=== PATIENT | male | born 1970 | race Two or more races ===

== ENCOUNTER 2016-05-15 11:41 | Outpatient (RCR) | payer MEDICAID ==
[~2016-05-15 11:41] MED LIST: /MOM400 PO; BACL10TA PO; CALC25TA PO; DULC5TAB PO; IBUP40TA PO; MIRA3350 PO; NORCOTAB PO; PRIL40CA PO; ZOFR4TAB3 PO
== END 2016-05-28 ==
LOC: M ST 11:41
PROVIDERS: ATTEND Family Medicine
DX: Z51.89 Encounter for other specified aftercare (principal); R13.11 Dysphagia, oral phase; G80.9 Cerebral palsy, unspecified
CPT/HCPCS: 92610; G8996; G8997; G8998

== ENCOUNTER 2016-06-03 12:53 | Outpatient (RCR) | payer MEDICAID ==
[2016-06-09] MEDS ORDERED: DULC5TAB PO (07:30)
[2016-06-09] MEDS ORDERED: ZOFR4TAB3 PO (07:30)
[2016-06-09] MEDS ORDERED: OMEP40CA2 PO (07:30)
== END 2016-06-28 ==
LOC: M ST 12:53
PROVIDERS: ATTEND Family Medicine
DX: Z51.89 Encounter for other specified aftercare (principal); R13.11 Dysphagia, oral phase; R13.10 Dysphagia, unspecified; G80.9 Cerebral palsy, unspecified

== ENCOUNTER 2016-06-09 07:10 | Emergency (ER) | payer MEDICAID ==
[2016-06-09] MEDS ORDERED: OMEP40CA2 PO (07:30)
[2016-06-09] MEDS ORDERED: ZOFR4TAB3 PO (07:30)
[2016-06-09] MEDS ORDERED: DULC5TAB PO (07:30)
[2016-06-09 09:02] LABS: BASO % 0.2 % (0.0-1.0); EOS # 0.1 K/mm3 (0.0-0.50); LARGE UNSTAINED CELL # 0.1 K/mm3 (0.0-0.4); LARGE UNSTAINED CELL % 1.1 % (0.0-4.0); LYMPH # 0.8 K/mm3 (1.5-4.5); LYMPH % 11.8 % (24.0-44.0); MEAN CORPUSCULAR HEMOGLOBIN 24.2 pg (27.0-33.0); MEAN CORPUSCULAR HGB CONC 31.4 g/dl (32.0-36.5); MEAN CORPUSCULAR VOLUME 77.1 fl (80.0-96.0); MONO # 0.3 K/mm3 (0.0-0.8); MONO % 5.8 % (0.0-5.0); NEUTROPHILS # 4.7 K/mm3 (1.8-7.7); NEUTROPHILS % 80.1 % (36.0-66.0); PLATELET COUNT, AUTOMATED 231 k/mm3 (150-450); RED CELL DISTRIBUTION WIDTH 14.3 % (11.5-14.5); WHITE BLOOD COUNT 5.8 K/mm3 (4.0-10.0)
[2016-06-09 09:26] LABS: ALBUMIN 3.7 GM/DL (3.2-5.2); ALBUMIN/GLOBULIN RATIO 0.93 (1.00-1.93); ALKALINE PHOSPHATASE 151 U/L (45-117); ALT/SGPT 13 U/L (12-78); AMYLASE 70 U/L (25-115); ANION GAP 7 MEQ/L (8-16); AST/SGOT 11 U/L (15-37); BILIRUBIN,DIRECT 0.1 MG/DL (0.0-0.2); BILIRUBIN,TOTAL 0.3 MG/DL (0.2-1.0); BLOOD UREA NITROGEN 8 MG/DL (7-18); CALCIUM LEVEL 8.9 MG/DL (8.5-10.1); CARBON DIOXIDE LEVEL 32 MEQ/L (21-32); CHLORIDE LEVEL 103 MEQ/L (98-107); GLOMERULAR FILTRATION RATE > 60.0 (>60); GLUCOSE, FASTING 93 MG/DL (70-105); POTASSIUM SERUM 3.9 MEQ/L (3.5-5.1); SODIUM LEVEL 142 MEQ/L (136-145); TOTAL PROTEIN 7.7 GM/DL (6.4-8.2)
[2016-06-09 09:44] LABS: INR 0.98
[2016-06-09] MEDS ORDERED: MORPHINE 2 MG/ML 1ML SYRINGE IV ONE (10:45)
[2016-06-09] MEDS ORDERED: ONDANSETRON 4MG/2ML VIAL (J2405) IV ONE (10:45)
[2016-06-09] MEDS ORDERED: NS 1,000 ML IV SCH (11:00)
[2016-06-09 12:05] VITALS: BP 99/65
--- NOTE | 2016-06-09 12:46 | REP ---
REASON: Pain after fall. COMPARISON: None. FINDINGS: No acute fracture or destructive osseous lesion. Signed by Juan Ramon Jeong DO 06/09/2016 01:53 P
--- NOTE | 2016-06-09 12:47 | REP ---
REASON: Pain after fall. COMPARISON: 02/02/2015 Bilateral spinal fixators are noted, status quo. There does not appear to be a significant change in the appearance of the spine, bilateral fixators, or transpedicular fixating screws. IMPRESSION: No plain radiographic evidence of definite change. Signed by Juan Ramon Jeong DO 06/09/2016 01:53 P
--- NOTE | 2016-06-09 12:47 | REP ---
REASON: Pain after fall. COMPARISON: None. FINDINGS: No acute fracture or destructive osseous lesion. Signed by Juan Ramon Jeong DO 06/09/2016 01:53 P
--- NOTE | 2016-06-09 12:49 | REP ---
REASON: Pain after fall. COMPARISON: 02/02/2015 Once again, bilateral paraspinal fixators are noted with multiple transpedicular screws and cancellous screws within the pelvis and sacrum. There does not appear to be a significant change in the appearance of the spine or spinal fixating devices. IMPRESSION: No evidence of significant change. Signed by Juan Ramon Jeong DO 06/09/2016 01:53 P
--- NOTE | 2016-06-09 12:54 | REP ---
Pain after trauma. COMPARISON: Preoperative AP pelvis 08/06/2009 There is no significant change in the appearance of the pelvis other than previous spinal fixation as described on prior studies obtained today. There is no evidence of an acute pelvic or hip fracture or dislocation. AP AND CROSS-TABLE LATERAL VIEWS OF THE LEFT HIP: The only prior is an AP pelvis of 12/03/2009. Two views of the left hip show no evidence of an acute fracture or dislocation. Signed by Juan Ramon Jeong DO 06/09/2016 01:53 P
--- NOTE | 2016-06-09 14:16 | REP ---
REASON: Trauma. COMPARISON: Frontal view obtained as part of a rib series 02/02/2015. The technique utilized in obtaining the radiograph has magnified the cardiac silhouette and accentuated the interstitial markings. AP supine view of the chest shows the cardiomediastinal silhouette, lung hawthorne, and osseous structures to be unchanged. There is no evidence of acute disease. Spinal fixators are noted status quo. Signed by Juan Ramon Jeong DO 06/09/2016 03:17 P
== END 2016-06-09 12:07 | disposition short-term general hospital (02) ==
LOC: M ED 08:08
DX: M25.552 Pain in left hip (principal); R20.9 Unspecified disturbances of skin sensation; M54.5 Low back pain; G80.0 Spastic quadriplegic cerebral palsy; Z98.1 Arthrodesis status; E78.5 Hyperlipidemia, unspecified; Z79.899 Other long term (current) drug therapy
CPT/HCPCS: 36415; 71010; 72070; 72100; 73502; 73552; 73590; 80048; 80076; 82150; 83605; 83690; 85025; 85610; 85730; 86850; 86900; 86901; 93041; 94760; 96374; 96375; 99285; J2405

== ENCOUNTER → 2016-09-02 | Outpatient (REF) | payer MEDICAID ==
[~2016-09-02] MED LIST changes: +OMEP40CA2 PO
[2016-09-02 14:16] LABS: ALBUMIN/GLOBULIN RATIO 1.11 (1.00-1.93); ALKALINE PHOSPHATASE 162 U/L (45-117); ALT/SGPT 16 U/L (12-78); AST/SGOT 11 U/L (15-37); BILIRUBIN,DIRECT < 0.1 MG/DL (0.0-0.2); BILIRUBIN,TOTAL 0.4 MG/DL (0.2-1.0); TOTAL PROTEIN 7.6 GM/DL (6.4-8.2)
== END ==
LOC: M SFHCPLAZ 11:22
PROVIDERS: ATTEND Family Medicine
DX: R74.8 Abnormal levels of other serum enzymes (principal)

== ENCOUNTER → 2016-11-20 | Outpatient (CLI) | payer MEDICARE, MEDICAID ==
[~2016-11-20] MED LIST changes: +ASPI1TAB PO; +ASPI81CH PO; +BACL10TA2 PO; +DAPT500I IV; +MULT1CHW39 PO; +SKEL800T97 PO; +THICPOW5 PO; +TUMS500C PO; +VITA500T PO; +VITMTA PO; +ZOSY1SOL5 IV
== END ==
LOC: M PT 12:37
PROVIDERS: ATTEND Nurse Practitioner Family
DX: M47.812 Spondylosis without myelopathy or radiculopathy, cervical region (principal); M41.50 Other secondary scoliosis, site unspecified; G80.8 Other cerebral palsy
CPT/HCPCS: 97162; G8978; G8979; G8980

== ENCOUNTER 2017-01-01 20:56 | Emergency (ER) | payer MEDICARE, MEDICAID ==
[~2017-01-01] VITALS: Ht 177.8 cm; Wt 61.4 kg
[~2017-01-01 20:56] MED LIST changes: -ASPI1TAB PO; -ASPI81CH PO; -BACL10TA2 PO; -DAPT500I IV; -MULT1CHW39 PO; -SKEL800T97 PO; -THICPOW5 PO; -TUMS500C PO; -VITA500T PO; -VITMTA PO; -ZOSY1SOL5 IV
[2017-01-01] MEDS ORDERED: TUMS500C PO (21:21)
[2017-01-01] MEDS ORDERED: ASPI1TAB PO (21:21)
[2017-01-01] MEDS ORDERED: DAPT500I IV (21:21)
[2017-01-01] MEDS ORDERED: SKEL800T97 PO (21:21)
[2017-01-01] MEDS ORDERED: MULT1CHW39 PO (21:21)
[2017-01-01] MEDS ORDERED: BACL10TA2 PO (21:21)
[2017-01-01] MEDS ORDERED: ZOSY1SOL5 IV (21:21)
[2017-01-01] MEDS ORDERED: ACETAMINOPHEN 325 MG TAB PO ONE (21:45)
[2017-01-01] MEDS ORDERED: NS 1,000 ML IV ONE (21:45)
[2017-01-01 22:24] LABS: BASO % 0.3 % (0.0-1.0); EOS # 0.5 10^3/uL (0.0-0.50); EOS % 4.2 % (0.0-3.0); IMMATURE GRANULOCYTE % 0.3 % (0-0); LYMPH # 0.7 10^3/uL (1.5-4.5); LYMPH % 5.4 % (24.0-44.0); MEAN CORPUSCULAR HEMOGLOBIN 22.8 pg (27.0-33.0); MEAN CORPUSCULAR HGB CONC 31.6 g/dl (32.0-36.5); MONO % 9.5 % (0.0-5.0); NEUTROPHILS # 9.8 10^3/uL (1.8-7.7); NEUTROPHILS % 80.3 % (36.0-66.0); PLATELET COUNT, AUTOMATED 477 10^3/uL (150-450); RED CELL DISTRIBUTION WIDTH 15.3 % (11.5-14.5); WHITE BLOOD COUNT 12.3 10^3/uL (4.0-10.0)
[2017-01-01 22:25] LABS: ADD MORPHOLOGY? YES; MONO # 1.2 10^3/uL (0.0-0.8)
[2017-01-01 22:44] LABS: ALBUMIN 2.6 GM/DL (3.2-5.2); ALBUMIN/GLOBULIN RATIO 0.57 (1.00-1.93); BILIRUBIN,DIRECT 0.1 MG/DL (0.0-0.2); BILIRUBIN,TOTAL 0.5 MG/DL (0.2-1.0); TOTAL PROTEIN 7.2 GM/DL (6.4-8.2)
[2017-01-01 22:48] LABS: HYPOCHROMASIA 2+; MICROCYTOSIS 2+; POIKILOCYTOSIS 2+
[2017-01-01 22:49] LABS: OVALOCYTES 2+
[2017-01-01 23:45] LABS: CALCIUM LEVEL 8.5 MG/DL (8.5-10.1); CREATININE FOR GFR 1.38 MG/DL (0.70-1.30); GLOMERULAR FILTRATION RATE 59.1 (>60); POTASSIUM SERUM 3.3 MEQ/L (3.5-5.1)
[2017-01-02] MEDS ORDERED: ISOVUE-370 76% 100ML VIAL (Q9967) As Ordered ONE (01:29)
[2017-01-02] MEDS ORDERED: NS 500 ML IV ONE (01:30)
--- NOTE | 2017-01-02 02:50 | REPUSA ---
CLINICAL HISTORY: Dyspnea, exclude PE. TECHNIQUE: Multiple incremental axial, coronal and oblique images are obtained from the thoracic inle t to the upper abdomen. Intravenous contrast material was administered as per pulmonary embolism prot ocol. COMMENTS: Comparison to prior exam performed on 10/07/2014. Interval appearance of a minimal right pleural effusion. Associated passive atelectatic airspace dise ase in the right lower lobe. Pulmonary consolidation is noted in the upper lobes, lingula, right middle lobe and bilateral lower l obes. There is excellent opacification of pulmonary arterial system without evidence for pulmonary embolism . Aorta is of normal caliber without evidence for dissection or aneurysm. There is no evidence of pleural or parenchymal mass. There are no pleural effusions. There is no evid ence of hilar or mediastinal lymphadenopathy. The heart and great vessels are within normal limits. Images of the upper abdomen demonstrate no evidence of adrenal mass. The bony structures are free of lytic or blastic lesions. Unremarkable spinal metallic hardware. IMPRESSION: No evidence for pulmonary embolism. Bilateral pleural consolidations that are not present on prior exam. Interval appearance of a minimal right effusion. Thank you for your kind referral of this patient.
[2017-01-02] MEDS ORDERED: VITA500T PO (04:19)
[2017-01-02] MEDS ORDERED: THICPOW5 PO (04:19)
[2017-01-02] MEDS ORDERED: ASPI81CH PO (04:19)
[2017-01-02] MEDS ORDERED: VITMTA PO (04:19)
[2017-01-02] MEDS ORDERED: ONDANSETRON 4 MG ORAL DISINTEGRATING TAB (S0181) PO ONE (06:00)
[2017-01-02 09:14] VITALS: BP 122/73
== END 2017-01-02 09:15 | disposition short-term general hospital (02) ==
LOC: M ED 20:56 → EDBD 20:56 → M ED 01-02 09:15
DX: R91.8 Other nonspecific abnormal finding of lung field (principal); R50.9 Fever, unspecified; G80.9 Cerebral palsy, unspecified; M41.9 Scoliosis, unspecified; K21.9 Gastro-esophageal reflux disease without esophagitis; Z79.899 Other long term (current) drug therapy; Z87.81 Personal history of (healed) traumatic fracture
CPT/HCPCS: 71275; 80048; 80076; 81001; 83605; 85025; 87040; 87086; 96360; 96361; 99285; Q9967

== ENCOUNTER → 2017-02-13 | Outpatient (REF) | payer MEDICARE, MEDICAID ==
[~2017-02-13] MED LIST changes: +ASPI1TAB PO; +ASPI81CH PO; +BACL10TA2 PO; +DAPT500I IV; +MULT1CHW39 PO; +SKEL800T97 PO; +THICPOW5 PO; +TUMS500C PO; +VITA500T PO; +VITMTA PO; +ZOSY1SOL5 IV
[2017-02-13 12:57] LABS: BASO % 0.7 % (0.0-1.0); EOS # 0.1 10^3/uL (0.0-0.50); EOS % 1.5 % (0.0-3.0); IMMATURE GRANULOCYTE % 0.3 % (0-0); LYMPH # 1.4 10^3/uL (1.5-4.5); LYMPH % 22.2 % (24.0-44.0); MEAN CORPUSCULAR HEMOGLOBIN 24.5 pg (27.0-33.0); MEAN CORPUSCULAR HGB CONC 30.9 g/dl (32.0-36.5); MEAN CORPUSCULAR VOLUME 79.2 fl (80.0-96.0); MONO # 0.6 10^3/uL (0.0-0.8); MONO % 9.3 % (0.0-5.0); NEUTROPHILS # 4.1 10^3/uL (1.8-7.7); PLATELET COUNT, AUTOMATED 315 10^3/uL (150-450); RED CELL DISTRIBUTION WIDTH 18.6 % (11.5-14.5); WHITE BLOOD COUNT 6.1 10^3/uL (4.0-10.0)
[2017-02-13 13:15] LABS: ALBUMIN 3.7 GM/DL (3.2-5.2); ALBUMIN/GLOBULIN RATIO 0.95 (1.00-1.93); ALKALINE PHOSPHATASE 198 U/L (45-117); ALT/SGPT 31 U/L (12-78); ANION GAP 7 MEQ/L (8-16); AST/SGOT 22 U/L (7-37); BILIRUBIN,TOTAL 0.2 MG/DL (0.2-1.0); BLOOD UREA NITROGEN 9 MG/DL (7-18); CALCIUM LEVEL 9.8 MG/DL (8.5-10.1); CARBON DIOXIDE LEVEL 30 MEQ/L (21-32); CHLORIDE LEVEL 104 MEQ/L (98-107); CREATININE FOR GFR 1.11 MG/DL (0.70-1.30); GLOMERULAR FILTRATION RATE > 60.0 (>60); GLUCOSE, FASTING 94 MG/DL (70-105); POTASSIUM SERUM 4.3 MEQ/L (3.5-5.1); SODIUM LEVEL 141 MEQ/L (136-145); TOTAL PROTEIN 7.6 GM/DL (6.4-8.2)
== END ==
LOC: M SFHCPLAZ 11:38
PROVIDERS: ATTEND Nurse Practitioner Family
DX: A09 Infectious gastroenteritis and colitis, unspecified (principal)
CPT/HCPCS: 36415; 80053; 85025; 87507; G0463

== ENCOUNTER → 2018-06-01 | Outpatient (REF) | payer MEDICARE, MEDICAID ==
[~2018-06-01] MED LIST changes: +ZOFR4TAB14 PO
[2018-06-01 13:42] LABS: BASO # 0.1 10^3/uL (0.0-0.2); BASO % 1.8 % (0.0-1.0); EOS # 0.1 10^3/uL (0.0-0.50); EOS % 1.3 % (0.0-3.0); HEMATOCRIT 35.6 % (42.0-52.0); HEMOGLOBIN 10.9 g/dl (13.5-17.5); LYMPH # 1.2 10^3/uL (1.5-4.5); LYMPH % 30.8 % (24.0-44.0); MEAN CORPUSCULAR HEMOGLOBIN 21.8 pg (27.0-33.0); MEAN CORPUSCULAR HGB CONC 30.6 g/dl (32.0-36.5); MEAN CORPUSCULAR VOLUME 71.2 fl (80.0-96.0); MONO # 0.4 10^3/uL (0.0-0.8); MONO % 10.3 % (0.0-5.0); NEUTROPHILS # 2.2 10^3/uL (1.8-7.7); NEUTROPHILS % 55.5 % (36.0-66.0); PLATELET COUNT, AUTOMATED 289 10^3/uL (150-450)
[2018-06-01 14:05] LABS: ALBUMIN 4.1 GM/DL (3.2-5.2); ALT/SGPT 52 U/L (12-78); BILIRUBIN,TOTAL 0.3 MG/DL (0.2-1.0); BLOOD UREA NITROGEN 5 MG/DL (7-18); C REACTIVE PROTEIN QUANTITATIV < 0.30 MG/DL (0.00-0.30); CALCIUM LEVEL 8.9 MG/DL (8.5-10.1); CARBON DIOXIDE LEVEL 29 MEQ/L (21-32); CHLORIDE LEVEL 107 MEQ/L (98-107); CREATININE FOR GFR 1.03 MG/DL (0.70-1.30); GLOMERULAR FILTRATION RATE > 60.0 (>60); GLUCOSE, FASTING 80 MG/DL (70-100); POTASSIUM SERUM 4.4 MEQ/L (3.5-5.1); SODIUM LEVEL 142 MEQ/L (136-145); TOTAL PROTEIN 7.7 GM/DL (6.4-8.2)
[2018-06-01 15:12] LABS: ERYTHROCYTE SEDIMENTATION RATE 6 mm/hr (0-15)
== END ==
LOC: M SFHCPLAZ 12:14
PROVIDERS: ATTEND Internal Medicine Infectious Disease
DX: M46.20 Osteomyelitis of vertebra, site unspecified (principal)
CPT/HCPCS: 36415; 80053; 85025; 85652; 86140; G0463

== ENCOUNTER → 2018-06-08 | Outpatient (CLI) | payer MEDICARE, MEDICAID ==
--- NOTE | 2018-06-08 11:43 | REP ---
ABDOMINAL ULTRASOUND (LIMITED): 06/08/2018 CLINICAL HISTORY: Followup reported abnormal ultrasound with possible [address] nondiagnostic because of extensive hardware scattered from Liriano rods for scoliosis. FINDINGS: Sonographic evaluation of the right upper quadrant shows the liver homogeneous in its echotexture. There is no hepatic mass, intrahepatic biliary dilatation nor perihepatic ascites. Gallbladder shows no stone, sludge or pericholecystic fluid. Normal gallbladder wall thickness of 2 mm. The pancreas shows no mass, ductal dilatation, echogenic focus to suggest calcification, peripancreatic fluid or adenopathy on these images. No sonographic Borja sign identified. Common duct is 3.4 mm without filling defect or dilatation. The right kidney is 9.3 x 4.6 x 4.2 cm. There is a 2.2 x 1.7 x 1.2 cm upper pole cyst with wall calcifications in that right side. This is not a simple cyst. It has no internal echoes otherwise and has through transmission. There is no free fluid in the abdomen. IMPRESSION: 1. Pancreas is seen throughout and shows no evidence of a mass, fluid collection, ductal dilatation, peripancreatic adenopathy nor echogenic focus to suggest a stone. Two different technologist's, including our chairman president and chief executive officer, scanned the patient without visible pancreatic mass noted on this study. 2. A 2.2 x 1.7 cm upper pole cyst in the right kidney with some calcifications along its wall. This is not a simple cyst. This should be followed. If the patient is a candidate for MRI, that would be a way to evaluate a complex renal cyst and the nearby pancreas, although CT does better with calcifications. However, the Liriano rods and spray artifact related to them would limit the examination significantly by CT. 3. The liver, gallbladder, common duct are unremarkable with no ascites. Electronically Signed by Pavan Gabriel MD 06/08/2018 07:47 P
== END ==
LOC: M RAD 08:58
PROVIDERS: ATTEND Family Medicine
DX: N28.1 Cyst of kidney, acquired (principal)

== ENCOUNTER → 2018-07-13 | Outpatient (REF) | payer MEDICARE, MEDICAID ==
[~2018-07-13] MED LIST changes: -/MOM400 PO; -ASPI1TAB PO; -ASPI81CH PO; +ASPI81CH49 PO; +ASPI81TA26 PO; +IBUP-1114 PO; -IBUP40TA PO; +MILK10SU PO; -MULT1CHW39 PO; +MULT200T7 PO; +ONDA-228 PO; -ZOFR4TAB3 PO
[2018-07-13 13:39] LABS: BASO % 0.6 % (0.0-1.0); EOS # 0.1 10^3/uL (0.0-0.50); EOS % 0.9 % (0.0-3.0); HEMATOCRIT 39.6 % (42.0-52.0); HEMOGLOBIN 11.9 g/dl (13.5-17.5); LYMPH # 1.6 10^3/uL (1.5-4.5); LYMPH % 24.9 % (24.0-44.0); MEAN CORPUSCULAR HEMOGLOBIN 21.8 pg (27.0-33.0); MEAN CORPUSCULAR HGB CONC 30.1 g/dl (32.0-36.5); MEAN CORPUSCULAR VOLUME 72.4 fl (80.0-96.0); MONO # 0.6 10^3/uL (0.0-0.8); MONO % 9.8 % (0.0-5.0); NEUTROPHILS % 63.6 % (36.0-66.0); PLATELET COUNT, AUTOMATED 235 10^3/uL (150-450); RED BLOOD COUNT 5.47 10^6/uL (4.30-6.10); WHITE BLOOD COUNT 6.4 10^3/uL (4.0-10.0)
[2018-07-13 13:45] LABS: ALBUMIN 4.5 GM/DL (3.2-5.2); ALT/SGPT 56 U/L (12-78); BILIRUBIN,TOTAL 0.4 MG/DL (0.2-1.0); BLOOD UREA NITROGEN 8 MG/DL (7-18); C REACTIVE PROTEIN QUANTITATIV 0.77 MG/DL (0.00-0.30); CALCIUM LEVEL 9.5 MG/DL (8.5-10.1); CARBON DIOXIDE LEVEL 29 MEQ/L (21-32); CHLORIDE LEVEL 103 MEQ/L (98-107); CREATININE FOR GFR 1.07 MG/DL (0.70-1.30); GLOMERULAR FILTRATION RATE > 60.0 (>60); GLUCOSE, FASTING 86 MG/DL (70-100); POTASSIUM SERUM 4.5 MEQ/L (3.5-5.1); SODIUM LEVEL 137 MEQ/L (136-145); TOTAL PROTEIN 7.8 GM/DL (6.4-8.2)
[2018-07-13 14:04] LABS: HEMOGLOBIN A1c 5.5 %
[2018-07-13 14:16] LABS: ERYTHROCYTE SEDIMENTATION RATE 6 mm/hr (0-15)
== END ==
LOC: M SFHCPLAZ 10:50
PROVIDERS: ATTEND Family Medicine
DX: M46.20 Osteomyelitis of vertebra, site unspecified (principal); Z98.1 Arthrodesis status; Z13.1 Encounter for screening for diabetes mellitus

== ENCOUNTER → 2018-08-25 | Outpatient (REF) | payer MEDICARE, MEDICAID ==
[2018-08-25 12:10] LABS: BASO % 0.4 % (0.0-1.0); EOS # 0.1 10^3/uL (0.0-0.50); EOS % 0.9 % (0.0-3.0); HEMATOCRIT 39.1 % (42.0-52.0); HEMOGLOBIN 12.1 g/dl (13.5-17.5); LYMPH # 1.1 10^3/uL (1.5-4.5); MEAN CORPUSCULAR HEMOGLOBIN 22.8 pg (27.0-33.0); MEAN CORPUSCULAR HGB CONC 30.9 g/dl (32.0-36.5); MEAN CORPUSCULAR VOLUME 73.8 fl (80.0-96.0); MONO # 0.5 10^3/uL (0.0-0.8); MONO % 7.6 % (0.0-5.0); NEUTROPHILS # 5.2 10^3/uL (1.8-7.7); NEUTROPHILS % 74.4 % (36.0-66.0); PLATELET COUNT, AUTOMATED 286 10^3/uL (150-450); WHITE BLOOD COUNT 6.9 10^3/uL (4.0-10.0)
[2018-08-25 12:33] LABS: ERYTHROCYTE SEDIMENTATION RATE 14 mm/hr (0-15)
== END ==
LOC: M SFHCPLAZ 09:46
PROVIDERS: ATTEND Internal Medicine Infectious Disease
DX: N28.89 Other specified disorders of kidney and ureter (principal); M46.20 Osteomyelitis of vertebra, site unspecified

== ENCOUNTER → 2018-09-22 | Outpatient (REF) | payer MEDICARE, MEDICAID ==
[2018-09-22 14:59] LABS: BASO % 0.7 % (0.0-1.0); EOS # 0.1 10^3/uL (0.0-0.50); EOS % 2.3 % (0.0-3.0); HEMATOCRIT 39.8 % (42.0-52.0); HEMOGLOBIN 12.5 g/dl (13.5-17.5); LYMPH # 1.3 10^3/uL (1.5-4.5); LYMPH % 21.3 % (24.0-44.0); MEAN CORPUSCULAR HEMOGLOBIN 23.5 pg (27.0-33.0); MEAN CORPUSCULAR HGB CONC 31.4 g/dl (32.0-36.5); MEAN CORPUSCULAR VOLUME 74.7 fl (80.0-96.0); MONO # 0.6 10^3/uL (0.0-0.8); MONO % 9.7 % (0.0-5.0); NEUTROPHILS # 3.9 10^3/uL (1.8-7.7); NEUTROPHILS % 65.8 % (36.0-66.0); PLATELET COUNT, AUTOMATED 281 10^3/uL (150-450); RED BLOOD COUNT 5.33 10^6/uL (4.30-6.10)
[2018-09-22 15:04] LABS: BLOOD UREA NITROGEN 8 MG/DL (7-18); C REACTIVE PROTEIN QUANTITATIV 1.32 MG/DL (0.00-0.30); CALCIUM LEVEL 9.4 MG/DL (8.5-10.1); CARBON DIOXIDE LEVEL 30 MEQ/L (21-32); CHLORIDE LEVEL 105 MEQ/L (98-107); CREATININE FOR GFR 1.03 MG/DL (0.70-1.30); GLOMERULAR FILTRATION RATE > 60.0 (>60); GLUCOSE, FASTING 89 MG/DL (70-100); POTASSIUM SERUM 4.2 MEQ/L (3.5-5.1); SODIUM LEVEL 139 MEQ/L (136-145)
[2018-09-22 15:41] LABS: ERYTHROCYTE SEDIMENTATION RATE 6 mm/hr (0-15)
== END ==
LOC: M LAB REF 14:36
PROVIDERS: ATTEND Internal Medicine Infectious Disease
DX: M46.20 Osteomyelitis of vertebra, site unspecified (principal)
CPT/HCPCS: 80048; 85025; 85652; 86140; G0463

== ENCOUNTER → 2018-10-12 | Outpatient (REF) | payer MEDICARE, MEDICAID ==
[~2018-10-12] MED LIST changes: +BACIOIN5 OP; +CEPH500C PO; -OMEP40CA2 PO; +OMEP40CA97 PO; +SULF1TAB93 PO
[2018-10-12 11:57] LABS: BASO % 0.6 % (0.0-1.0); EOS % 0.4 % (0.0-3.0); HEMATOCRIT 42.3 % (42.0-52.0); LYMPH % 20.7 % (24.0-44.0); MEAN CORPUSCULAR HEMOGLOBIN 23.8 pg (27.0-33.0); MEAN CORPUSCULAR HGB CONC 30.7 g/dl (32.0-36.5); MEAN CORPUSCULAR VOLUME 77.5 fl (80.0-96.0); MONO # 0.5 10^3/uL (0.0-0.8); MONO % 10.8 % (0.0-5.0); NEUTROPHILS # 3.1 10^3/uL (1.8-7.7); NEUTROPHILS % 67.3 % (36.0-66.0); PLATELET COUNT, AUTOMATED 249 10^3/uL (150-450); RED BLOOD COUNT 5.46 10^6/uL (4.30-6.10); WHITE BLOOD COUNT 4.6 10^3/uL (4.0-10.0)
[2018-10-12 12:31] LABS: ALBUMIN 4.3 GM/DL (3.2-5.2); BILIRUBIN,DIRECT 0.1 MG/DL (0.0-0.2); BILIRUBIN,TOTAL 0.4 MG/DL (0.2-1.0); TOTAL PROTEIN 7.7 GM/DL (6.4-8.2)
== END ==
LOC: M SFHCPLAZ 10:32
PROVIDERS: ATTEND Family Medicine
DX: D64.9 Anemia, unspecified (principal); R94.5 Abnormal results of liver function studies

== ENCOUNTER 2018-11-05 10:42 | Emergency (ER) | payer MEDICARE, MEDICAID ==
[~2018-11-05] VITALS: Ht 172.7 cm; Wt 54.5 kg
[~2018-11-05 10:42] MED LIST changes: -BACIOIN5 OP; -CEPH500C PO; +OMEP40CA2 PO; -OMEP40CA97 PO; -SULF1TAB93 PO
[2018-11-05] MEDS ORDERED: SULF1TAB93 PO (11:01)
[2018-11-05] MEDS ORDERED: CEPH500C PO (11:01)
[2018-11-05] MEDS ORDERED: BACIOIN5 OP (12:00)
[2018-11-05 12:18] VITALS: BP 115/70
--- NOTE | 2018-11-05 12:25 | REP ---
CT HEAD WITHOUT CONTRAST: HISTORY: Trauma. COMPARISON: 09/29/2015 There is no intraparenchymal hemorrhage, mass or midline shift. The ventricular system is normal in appearance. There is no extracerebral collection. There is no fracture. The visualized sinuses are clear. IMPRESSION: There is no intracranial lesion. Electronically Signed by Umang Riggs MD 11/05/2018 12:26 P
--- NOTE | 2018-11-05 12:28 | REP ---
THORACIC SPINE: Five AP and lateral views of the thoracic spine performed. There is no evidence of fracture or dislocation with normal thoracic kyphosis. Posterior metallic rods and screws are seen in the mid to lower thoracic spine region. Disc spaces demonstrate minor narrowing in the upper thoracic spine. There is mild curvature of the thoracolumbar spine convex to the right. IMPRESSION: No evidence of acute fracture or dislocation. Electronically Signed by Luca Clarke MD 11/05/2018 01:20 P
== END 2018-11-05 12:22 | disposition home or self-care (01) ==
LOC: EDBD 10:42 → M ED 10:43
DX: S01.01XA Laceration without foreign body of scalp, initial encounter (principal); W01.198A Fall on same level from slipping, tripping and stumbling with subsequent striking against other object, initial encounter; Y92.098 Other place in other non-institutional residence as the place of occurrence of the external cause; G80.0 Spastic quadriplegic cerebral palsy; E78.9 Disorder of lipoprotein metabolism, unspecified; Z88.1 Allergy status to other antibiotic agents; Z79.899 Other long term (current) drug therapy; Z79.2 Long term (current) use of antibiotics

== ENCOUNTER → 2018-12-22 | Outpatient (REF) | payer MEDICARE, MEDICAID ==
[~2018-12-22] MED LIST changes: +BACIOIN5 OP; +CEPH500C PO; +SULF1TAB93 PO
[2018-12-22 14:50] LABS: BASO % 0.7 % (0.0-1.0); EOS # 0.1 10^3/uL (0.0-0.5); HEMATOCRIT 43.1 % (42.0-52.0); HEMOGLOBIN 13.4 g/dl (13.5-17.5); LYMPH # 1.2 10^3/uL (1.5-5.0); LYMPH % 21.4 % (24.0-44.0); MEAN CORPUSCULAR HGB CONC 31.1 g/dl (32.0-36.5); MEAN CORPUSCULAR VOLUME 77.2 fl (80.0-96.0); MONO # 0.6 10^3/uL (0.0-0.8); MONO % 10.7 % (0.0-5.0); NEUTROPHILS # 3.5 10^3/uL (1.5-8.5); NEUTROPHILS % 64.8 % (36.0-66.0); PLATELET COUNT, AUTOMATED 262 10^3/uL (150-450); RED BLOOD COUNT 5.58 10^6/uL (4.30-6.10); WHITE BLOOD COUNT 5.4 10^3/uL (4.0-10.0)
[2018-12-22 15:04] LABS: BLOOD UREA NITROGEN 8 MG/DL (7-18); C REACTIVE PROTEIN QUANTITATIV 0.42 MG/DL (0.00-0.30); CALCIUM LEVEL 9.1 MG/DL (8.5-10.1); CARBON DIOXIDE LEVEL 29 MEQ/L (21-32); CHLORIDE LEVEL 103 MEQ/L (98-107); CREATININE FOR GFR 1.08 MG/DL (0.70-1.30); GLOMERULAR FILTRATION RATE > 60.0 (>60); GLUCOSE, FASTING 66 MG/DL (70-100); POTASSIUM SERUM 4.5 MEQ/L (3.5-5.1); SODIUM LEVEL 140 MEQ/L (136-145)
[2018-12-22 15:15] LABS: ERYTHROCYTE SEDIMENTATION RATE 2 mm/hr (0-15)
== END ==
LOC: M SFHCPLAZ 11:48
PROVIDERS: ATTEND Internal Medicine Infectious Disease
DX: M46.20 Osteomyelitis of vertebra, site unspecified (principal)
CPT/HCPCS: 36415; 80048; 85025; 85652; 86140; 90682; G0008; G0463

== ENCOUNTER → 2019-02-15 | Outpatient (REF) | payer MEDICARE, MEDICAID ==
[~2019-02-15] MED LIST changes: -OMEP40CA2 PO; +OMEP40CA97 PO
[2019-02-15 17:14] LABS: BASO % 0.5 % (0.0-1.0); EOS # 0.1 10^3/uL (0.0-0.5); EOS % 1.2 % (0.0-3.0); HEMATOCRIT 43.1 % (42.0-52.0); HEMOGLOBIN 13.4 g/dl (13.5-17.5); LYMPH # 1.8 10^3/uL (1.5-5.0); MEAN CORPUSCULAR HEMOGLOBIN 24.7 pg (27.0-33.0); MEAN CORPUSCULAR HGB CONC 31.1 g/dl (32.0-36.5); MEAN CORPUSCULAR VOLUME 79.5 fl (80.0-96.0); MONO # 0.7 10^3/uL (0.0-0.8); MONO % 8.9 % (0.0-5.0); NEUTROPHILS # 4.9 10^3/uL (1.5-8.5); PLATELET COUNT, AUTOMATED 266 10^3/uL (150-450); RED BLOOD COUNT 5.42 10^6/uL (4.30-6.10); WHITE BLOOD COUNT 7.6 10^3/uL (4.0-10.0)
[2019-02-15 18:30] LABS: ERYTHROCYTE SEDIMENTATION RATE 4 mm/hr (0-15)
[2019-02-15 18:49] LABS: BLOOD UREA NITROGEN 7 MG/DL (7-18); C REACTIVE PROTEIN QUANTITATIV 1.24 MG/DL (0.00-0.30); CALCIUM LEVEL 9.2 MG/DL (8.5-10.1); CARBON DIOXIDE LEVEL 30 MEQ/L (21-32); CHLORIDE LEVEL 104 MEQ/L (98-107); CREATININE FOR GFR 0.92 MG/DL (0.70-1.30); GLOMERULAR FILTRATION RATE > 60.0 (>60); GLUCOSE, FASTING 90 MG/DL (70-100); POTASSIUM SERUM 3.7 MEQ/L (3.5-5.1); SODIUM LEVEL 142 MEQ/L (136-145)
== END ==
LOC: M SFHCPLAZ 15:44
PROVIDERS: ATTEND Internal Medicine Infectious Disease
DX: M46.20 Osteomyelitis of vertebra, site unspecified (principal)
CPT/HCPCS: 36415; 80048; 85025; 85652; 86140; G0463

== ENCOUNTER → 2019-02-17 | Outpatient (CLI) | payer MEDICARE, MEDICAID ==
--- NOTE | 2019-02-17 14:07 | REP ---
ULTRASOUND LEFT PARASPINAL SOFT TISSUES: Real-time sonographic evaluation of the left paraspinal soft tissues performed at the site of the palpable lump status post spinal fusion procedure. There is a complex fluid collection at this location which measures 4.1 x 1.7 x 3.4 cm. There may be a tract extending into the deeper soft tissues at the posterior aspect of this complex collection. Differential diagnosis would include hematoma or abscess. Electronically Signed by Luca Clarke MD 02/18/2019 11:22 A
== END ==
LOC: M RAD 12:25
PROVIDERS: ATTEND Internal Medicine Infectious Disease
DX: M46.20 Osteomyelitis of vertebra, site unspecified (principal); M67.38 Transient synovitis, other site

== ENCOUNTER → 2019-03-01 | Outpatient (CLI) | payer MEDICARE, MEDICAID ==
[~2019-03-01] MED LIST changes: +LIDOCAINE 1% MDV 20ML VIAL As Ordered ONE
[2019-03-01 14:11] VITALS: BP 108/73
--- NOTE | 2019-03-01 17:12 | REP ---
ULTRASOUND-GUIDED LEFT PARASPINAL ABSCESS DRAIN The procedure was performed under the direct supervision of Dr. Clarke. The patient has a history of A 4.1 x 1.7 x 3.4 cm complex fluid collection in the left paraspinal region seen on a previous ultrasound dated 02/17/2019. The risks and benefits of the procedure were explained to the patient and informed consent was obtained by the health care proxy. The left paraspinal fluid collection was localized using ultrasound guidance. The skin was prepped and draped in a sterile fashion. 1% lidocaine was used as a local anesthetic. Using ultrasound guidance a 5-Swedish centesis catheter was inserted and 8 ml of red colored proteinaceous fluid was withdrawn and sent to the lab for analysis. The patient tolerated the procedure well and there were no immediate complications. After the appropriate amount of monitored convalescence the patient was discharged from the department. Electronically Signed by LEONEL Jones 03/01/2019 04:58 P Electronically Signed by Luca Clarke MD 03/01/2019 05:02 P
== END ==
LOC: M IRPRO 12:35
DX: M46.20 Osteomyelitis of vertebra, site unspecified (principal)

== ENCOUNTER 2019-03-17 10:51 | Outpatient (CLI) | payer MEDICARE, MEDICAID ==
[~2019-03-17] VITALS: Ht 177.8 cm; Wt 54.4 kg
[~2019-03-17 10:51] MED LIST changes: -LIDOCAINE 1% MDV 20ML VIAL As Ordered ONE
[2019-03-17] MEDS ORDERED: DALBAVANCIN 1,500 MG in D5W 250 ML IV ONE (11:15)
[2019-03-17 11:18] VITALS: BP 122/78
[2019-03-17 12:30] VITALS: BP 137/79
== END 2019-03-17 12:30 | disposition home or self-care (01) ==
LOC: M INFU 10:51
PROVIDERS: ATTEND Internal Medicine Infectious Disease
DX: L02.212 Cutaneous abscess of back [any part, except buttock and flank] (principal); M46.20 Osteomyelitis of vertebra, site unspecified; Z88.1 Allergy status to other antibiotic agents
CPT/HCPCS: 96365; J0875

== ENCOUNTER → 2019-05-31 | Outpatient (CLI) | payer MEDICARE, MEDICAID ==
[2019-05-31 12:53] LABS: HEMATOCRIT 35.3 % (42.0-52.0); HEMOGLOBIN 10.5 g/dl (13.5-17.5); MEAN CORPUSCULAR HEMOGLOBIN 22.5 pg (27.0-33.0); MEAN CORPUSCULAR HGB CONC 29.7 g/dl (32.0-36.5); MEAN CORPUSCULAR VOLUME 75.6 fl (80.0-96.0); PLATELET COUNT, AUTOMATED 409 10^3/uL (150-450); RED BLOOD COUNT 4.67 10^6/uL (4.30-6.10); WHITE BLOOD COUNT 4.7 10^3/uL (4.0-10.0)
[2019-05-31 13:19] LABS: ERYTHROCYTE SEDIMENTATION RATE 52 mm/hr (0-15)
[2019-05-31 13:24] LABS: ALT/SGPT 48 U/L (12-78); BILIRUBIN,TOTAL 0.3 MG/DL (0.2-1.0); BLOOD UREA NITROGEN 6 MG/DL (7-18); CALCIUM LEVEL 9.5 MG/DL (8.5-10.1); CARBON DIOXIDE LEVEL 31 MEQ/L (21-32); CHLORIDE LEVEL 106 MEQ/L (98-107); CPK CREATINE PHOSPHOKINASE 50 U/L (39-308); CREATININE FOR GFR 1.05 MG/DL (0.70-1.30); GLOMERULAR FILTRATION RATE > 60.0 (>60); GLUCOSE, FASTING 78 MG/DL (70-100); POTASSIUM SERUM 3.8 MEQ/L (3.5-5.1); SODIUM LEVEL 141 MEQ/L (136-145); TOTAL PROTEIN 8.2 GM/DL (6.4-8.2)
== END ==
LOC: M LAB 11:30
PROVIDERS: ATTEND Physician Assistant Medical
DX: Z11.8 Encounter for screening for other infectious and parasitic diseases (principal)

== ENCOUNTER → 2019-06-10 | Outpatient (REF) | payer MEDICARE, MEDICAID ==
[2019-06-10 10:04] LABS: BASO % 0.9 % (0.0-1.0); EOS # 0.1 10^3/uL (0.0-0.5); EOS % 2.3 % (0.0-3.0); HEMATOCRIT 36.8 % (42.0-52.0); HEMOGLOBIN 10.9 g/dl (13.5-17.5); LYMPH # 1.1 10^3/uL (1.5-5.0); LYMPH % 24.6 % (24.0-44.0); MEAN CORPUSCULAR HEMOGLOBIN 22.1 pg (27.0-33.0); MEAN CORPUSCULAR HGB CONC 29.6 g/dl (32.0-36.5); MEAN CORPUSCULAR VOLUME 74.5 fl (80.0-96.0); MONO # 0.4 10^3/uL (0.0-0.8); MONO % 8.5 % (0.0-5.0); NEUTROPHILS # 2.8 10^3/uL (1.5-8.5); NEUTROPHILS % 63.5 % (36.0-66.0); PLATELET COUNT, AUTOMATED 388 10^3/uL (150-450); RED BLOOD COUNT 4.94 10^6/uL (4.30-6.10); WHITE BLOOD COUNT 4.4 10^3/uL (4.0-10.0)
[2019-06-10 11:20] LABS: ERYTHROCYTE SEDIMENTATION RATE 20 mm/hr (0-15)
== END ==
LOC: M SFHCPLAZ 08:03
PROVIDERS: ATTEND Internal Medicine Infectious Disease
DX: M46.20 Osteomyelitis of vertebra, site unspecified (principal)
CPT/HCPCS: 36415; 85025; 85652; 86140; G0463

== ENCOUNTER → 2019-06-25 | Outpatient (REF) | payer MEDICARE, MEDICAID ==
[2019-06-25 14:17] LABS: BASO # 0.1 10^3/uL (0.0-0.2); BASO % 1.2 % (0.0-1.0); EOS # 0.1 10^3/uL (0.0-0.5); EOS % 2.5 % (0.0-3.0); HEMATOCRIT 39.4 % (42.0-52.0); HEMOGLOBIN 11.7 g/dl (13.5-17.5); LYMPH # 1.7 10^3/uL (1.5-5.0); LYMPH % 30.1 % (24.0-44.0); MEAN CORPUSCULAR HEMOGLOBIN 21.7 pg (27.0-33.0); MEAN CORPUSCULAR HGB CONC 29.7 g/dl (32.0-36.5); MEAN CORPUSCULAR VOLUME 73.2 fl (80.0-96.0); MONO # 0.5 10^3/uL (0.0-0.8); MONO % 8.6 % (0.0-5.0); NEUTROPHILS # 3.2 10^3/uL (1.5-8.5); NEUTROPHILS % 57.4 % (36.0-66.0); PLATELET COUNT, AUTOMATED 197 10^3/uL (150-450); RED BLOOD COUNT 5.38 10^6/uL (4.30-6.10); WHITE BLOOD COUNT 5.6 10^3/uL (4.0-10.0)
[2019-06-25 14:36] LABS: ERYTHROCYTE SEDIMENTATION RATE 9 mm/hr (0-15)
== END ==
LOC: M LAB REF 13:58 → M SHH 13:58
PROVIDERS: ATTEND Internal Medicine Infectious Disease
DX: M46.20 Osteomyelitis of vertebra, site unspecified (principal)

== ENCOUNTER 2019-10-20 12:20 | Outpatient (RCR) | payer MEDICARE, MEDICAID ==
[~2019-10-20 12:20] MED LIST changes: +VITA-243 PO; -VITA500T PO
== END 2019-10-29 ==
LOC: M ST 12:20
PROVIDERS: ATTEND Family Medicine
DX: R13.11 Dysphagia, oral phase (principal); G80.8 Other cerebral palsy

== ENCOUNTER 2020-02-02 14:24 | Outpatient (RCR) | payer MEDICARE, MEDICAID | END 2020-02-28 | LOC: M ST 14:24 | PROVIDERS: ATTEND Family Medicine | DX: G80.9 Cerebral palsy, unspecified (principal); F80.9 Developmental disorder of speech and language, unspecified ==

== ENCOUNTER → 2020-03-21 | Outpatient (CLI) | payer SELFPAY | LOC: M LABSMTC 10:05 | PROVIDERS: ATTEND Pediatrics | DX: Z20.828 Contact with and (suspected) exposure to other viral communicable diseases (principal) ==

== ENCOUNTER 2020-05-11 10:44 | Outpatient (RCR) | payer MEDICARE, MEDICAID | END 2020-05-28 | LOC: M ST 10:44 | PROVIDERS: ATTEND Family Medicine | DX: G80.8 Other cerebral palsy (principal); R13.11 Dysphagia, oral phase ==

== ENCOUNTER → 2020-10-19 | Outpatient (CLI) | payer MEDICARE, MEDICAID, OTHER ==
[~2020-10-19] MED LIST changes: +BACTDSTA PO; +OMEP40CA4 PO; -OMEP40CA97 PO; -SULF1TAB93 PO
[2020-10-19 17:19] LABS: HEMATOCRIT 47.5 % (42.0-52.0); HEMOGLOBIN 15.3 g/dl (13.5-17.5); MEAN CORPUSCULAR HGB CONC 32.2 g/dl (32.0-36.5); MEAN CORPUSCULAR VOLUME 83.8 fl (80.0-96.0); PLATELET COUNT, AUTOMATED 178 10^3/uL (150-450); RED BLOOD COUNT 5.67 10^6/uL (4.30-6.10); WHITE BLOOD COUNT 5.8 10^3/uL (4.0-10.0)
[2020-10-19 17:32] LABS: BLOOD UREA NITROGEN 8 MG/DL (7-18); CHLORIDE LEVEL 102 MEQ/L (98-107); CREATININE FOR GFR 0.96 MG/DL (0.70-1.30); GLOMERULAR FILTRATION RATE > 60.0 (>56); GLUCOSE, FASTING 86 MG/DL (70-100); POTASSIUM SERUM 4.2 MEQ/L (3.5-5.1); SODIUM LEVEL 141 MEQ/L (136-145)
[2020-10-19 17:33] LABS: ALBUMIN 4.3 GM/DL (3.2-5.2); ALT/SGPT 16 U/L (12-78); BILIRUBIN,TOTAL 0.4 MG/DL (0.2-1.0); CALCIUM LEVEL 9.5 MG/DL (8.5-10.1); CARBON DIOXIDE LEVEL 31 MEQ/L (21-32); CHOLESTEROL LEVEL 223 MG/DL (<200); CHOLESTEROL RISK RATIO 3.484 (<5); FERRITIN 39 NG/ML (26-388); HDL CHOLESTEROL 64 MG/DL (>40); IRON (FE) 73 UG/DL (65-175); LDL CHOLESTEROL 145 MG/DL (<100); NON-HDL-C 159 MG/DL; TOTAL PROTEIN 7.8 GM/DL (6.4-8.2); TRIGLYCERIDES LEVEL 72 MG/DL (<150)
== END ==
LOC: M PLALAB 15:29
PROVIDERS: ATTEND Family Medicine
DX: E78.5 Hyperlipidemia, unspecified (principal); D50.9 Iron deficiency anemia, unspecified; Z12.5 Encounter for screening for malignant neoplasm of prostate
CPT/HCPCS: 36415; 80053; 80061; 82728; 83540; 85027; G0103

== ENCOUNTER 2021-03-03 17:14 | Emergency (ER) | payer MEDICARE, MEDICAID ==
[~2021-03-03] VITALS: Ht 177.8 cm; Wt 55.5 kg
--- OUTSIDE RECORDS SUMMARY | 2021-03-03 20:13 | CCD ---
Author Author [facility] Organization [facility] Address Unknown Phone Unavailable Care Team Providers Care Gasket Inspector Name Role Phone Olivier BARLOW DPM Unavailable Unavailable Olivier BARLOW DPM Unavailable Unavailable Olivier BARLOW DPM Unavailable Unavailable Olivier BARLOW DPM Unavailable Unavailable Olivier BARLOW DPM Unavailable Unavailable Olivier BARLOW DPM Unavailable Unavailable Olivier BARLOW DPM Unavailable Unavailable Olivier BARLOW DPM Unavailable Unavailable Olivier BARLOW DPM Unavailable Unavailable Olivier BARLOW DPM Unavailable Unavailable Olivier BARLOW DPM Unavailable Unavailable Olivier BARLOW DPM Unavailable Unavailable Olivier BARLOW DPM Unavailable Unavailable Olivier BARLOW DPM Unavailable Unavailable Olivier BARLOW DPM Unavailable Unavailable Olivier BARLOW DPM Unavailable Unavailable Olivier BARLOW DPM Unavailable Unavailable Olivier BARLOW DPM Unavailable Unavailable Olivier BARLOW DPM Unavailable Unavailable Olivier BARLOW DPM Unavailable Unavailable Olivier BARLOW DPM Unavailable Unavailable Olivier BARLOW DPM Unavailable Unavailable Olivier BARLOW DPM Unavailable Unavailable Olivier BARLOW DPM Unavailable Unavailable Olivier BARLOW DPM Unavailable Unavailable Olivier BARLOW DPM Unavailable Unavailable Olivier BARLOW DPM Unavailable Unavailable Olivier BARLOW DPM Unavailable Unavailable MAJAK, R MICHELLE DPM Unavailable Unavailable MAJAK, R MICHELLE DPM Unavailable Unavailable MAJAK, R MICHELLE DPM Unavailable Unavailable MAJAK, R MICHELLE DPM Unavailable Unavailable MAJAK, R MICHELLE DPM Unavailable Unavailable [place], A Steven MD Unavailable Unavailable [place], A Steven MD Unavailable Unavailable [place], A Steven MD Unavailable Unavailable [place], A Steven MD Unavailable Unavailable [place], A Steven MD Unavailable Unavailable [place], A Steven MD Unavailable Unavailable [place], A Steven MD Unavailable Unavailable [place], A Steven MD Unavailable Unavailable [place], A Steven MD Unavailable Unavailable [place], A Steven MD Unavailable Unavailable [place], A Steven MD Unavailable Unavailable [place], A Steven MD Unavailable Unavailable [place], A Steven MD Unavailable Unavailable [place], A Steven MD Unavailable Unavailable [place], A Steven MD Unavailable Unavailable [place], A Steven MD Unavailable Unavailable [place], A Steven MD Unavailable Unavailable [place], A Steven MD Unavailable Unavailable [place], A Steven MD Unavailable Unavailable [place], A Steven MD Unavailable Unavailable [place], A Steven MD Unavailable Unavailable [place], A Steven MD Unavailable Unavailable [place], A Steven MD Unavailable Unavailable [place], A Steven MD Unavailable Unavailable [place], A Steven MD Unavailable Unavailable [place], A Steven MD Unavailable Unavailable [place], A Steven MD Unavailable Unavailable [place], A Steven MD Unavailable Unavailable [place], A Steven MD Unavailable Unavailable [place], A Steven MD Unavailable Unavailable [place], A Steven MD Unavailable Unavailable [place], A Steven MD Unavailable Unavailable [place], A Steven MD Unavailable Unavailable [place], A Steven MD Unavailable Unavailable [place], A Steven MD Unavailable Unavailable [place], A Steven MD Unavailable Unavailable [place], A Steven MD Unavailable Unavailable [place], A Steven MD Unavailable Unavailable [place], A Steven MD Unavailable Unavailable [place], A Steven MD Unavailable Unavailable [place], A Steven MD Unavailable Unavailable [place], A Steven MD Unavailable Unavailable [place], A Steven MD Unavailable Unavailable [place], A Steven MD Unavailable Unavailable [place], A Steven MD Unavailable Unavailable [place], A Steven MD Unavailable Unavailable [place], A Steven MD Unavailable Unavailable [place], A Steven MD Unavailable Unavailable [place], A Steven MD Unavailable Unavailable [place], A Steven MD Unavailable Unavailable [place], A Steven MD Unavailable Unavailable [place], A Steven MD Unavailable Unavailable [place], A Steven MD Unavailable Unavailable [place], A Steven MD Unavailable Unavailable [place], A Steven MD Unavailable Unavailable [place], A Steven MD Unavailable Unavailable [place], A Steven MD Unavailable Unavailable [place], A Steven MD Unavailable Unavailable [place], A Steven MD Unavailable Unavailable [place], A Steven MD Unavailable Unavailable [place], A Steven MD Unavailable Unavailable [place], A Steven MD Unavailable Unavailable [place], A Steven MD Unavailable Unavailable [place], A Steven MD Unavailable Unavailable [place], A Steven MD Unavailable Unavailable [place], A Steven MD Unavailable Unavailable [place], A Steven MD Unavailable Unavailable [place], A Steven MD Unavailable Unavailable [place], A Steven MD Unavailable Unavailable [place], A Steven MD Unavailable Unavailable [place], A Steven MD Unavailable Unavailable [place], A Steven MD Unavailable Unavailable [place], A Steven MD Unavailable Unavailable [place], A Steven MD Unavailable Unavailable [place], A Steven MD Unavailable Unavailable [place], A Steven MD Unavailable Unavailable [place], A Steven MD Unavailable Unavailable [place], A Steven MD Unavailable Unavailable [place], A Steven MD Unavailable Unavailable [place], A Steven MD Unavailable Unavailable [place], A Steven MD Unavailable Unavailable [place], A Steven MD Unavailable Unavailable [place], A Steven MD Unavailable Unavailable [place], A Steven MD Unavailable Unavailable [place], A Steven MD Unavailable Unavailable [place], A Steven MD Unavailable Unavailable [place], A Steven MD Unavailable Unavailable [place], A Steven MD Unavailable Unavailable Aloi, M Cole EDGE CUTTER Unavailable Unavailable Aloi, M Cole EDGE CUTTER Unavailable Unavailable Aloi, M Cole EDGE CUTTER Unavailable Unavailable Aloi, M Cole EDGE CUTTER Unavailable Unavailable Aloi, M Cole EDGE CUTTER Unavailable Unavailable Aloi, M Cole EDGE CUTTER Unavailable Unavailable Aloi, M Cole EDGE CUTTER Unavailable Unavailable Aloi, M Cole EDGE CUTTER Unavailable Unavailable Aloi, M Cole EDGE CUTTER Unavailable Unavailable Aloi, M Cole EDGE CUTTER Unavailable Unavailable Aloi, M Cole EDGE CUTTER Unavailable Unavailable Aloi, M Cole EDGE CUTTER Unavailable Unavailable Aloi, M Cole EDGE CUTTER Unavailable Unavailable Aloi, M Cole EDGE CUTTER Unavailable Unavailable Aloi, M Cole EDGE CUTTER Unavailable Unavailable Aloi, M Cole EDGE CUTTER Unavailable Unavailable Aloi, M Cole EDGE CUTTER Unavailable Unavailable Aloi, M Cole EDGE CUTTER Unavailable Unavailable Aloi, M Cole EDGE CUTTER Unavailable Unavailable Aloi, M Cole EDGE CUTTER Unavailable Unavailable Aloi, M Cole EDGE CUTTER Unavailable Unavailable Aloi, M Cole EDGE CUTTER Unavailable Unavailable Aloi, M Cole EDGE CUTTER Unavailable Unavailable Aloi, M Cole EDGE CUTTER Unavailable Unavailable Aloi, M Cole EDGE CUTTER Unavailable Unavailable Aloi, M Cole EDGE CUTTER Unavailable Unavailable Aloi, M Cole EDGE CUTTER Unavailable Unavailable Aloi, M Cole EDGE CUTTER Unavailable Unavailable Aloi, M Cole EDGE CUTTER Unavailable Unavailable Aloi, M Cole EDGE CUTTER Unavailable Unavailable Aloi, M Cole EDGE CUTTER Unavailable Unavailable Aloi, M Cole EDGE CUTTER Unavailable Unavailable Aloi, M Cole EDGE CUTTER Unavailable Unavailable Aloi, M Cole EDGE CUTTER Unavailable Unavailable Aloi, M Cole EDGE CUTTER Unavailable Unavailable Aloi, M Cole EDGE CUTTER Unavailable Unavailable Aloi, M Cole EDGE CUTTER Unavailable Unavailable Aloi, M Cole EDGE CUTTER Unavailable Unavailable Aloi, M Cole EDGE CUTTER Unavailable Unavailable Aloi, M Cole EDGE CUTTER Unavailable Unavailable Re-disclosure Warning The records that you are about to access may contain information from federally-assisted alcohol or drug abuse programs. If such information is present, then the following federally mandated warning applies: This information has been disclosed to you from records protected by federal confidentiality rules (42 CFR part 2). The federal rules prohibit you from making any further disclosure of this information unless further disclosure is expressly permitted by the written consent of the person to whom it pertains or as otherwise permitted by 42 CFR part 2. A general authorization for the release of medical or other information is NOT sufficient for this purpose. The Federal rules restrict any use of the information to criminally investigate or prosecute any alcohol or drug abuse patient.The records that you are about to access may contain highly sensitive health information, the redisclosure of which is protected by Article 27-F of the [place] Public Health law. If you continue you may have access to information: Regarding HIV / AIDS; Provided by facilities licensed or operated by the [facility] Office of Mental Health; or Provided by the [facility] for People With Developmental Disabilities. If such information is present, then the following [facility] mandated warning applies: This information has been disclosed to you from confidential records which are protected by state law. State law prohibits you from making any further disclosure of this information without the specific written consent of the person to whom it pertains, or as otherwise permitted by law. Any unauthorized further disclosure in violation of state law may result in a fine or group home sentence or both. A general authorization for the release of medical or other information is NOT sufficient authorization for further disc losure. Encounters Encounter Providers Location Date Indications Data Source(s ) Outpatient Attender: Cole Roddy RASCON 09/24/2021 12:00:00 AM [facility] [address] [address] 10/19/2020 12:00:00 AM EDT eCW1 ([facility]) Unknown [address] [facility] [place] [address] 09/25/2020 12:00:00 AM EDT eCW1 ([facility]) Outpatient Referrer: Cole RASCON 09/22/2020 12: 00:00 AM EDT Arthrodesis status [facility] Arthrodesis status Outpatient Attender: Cole Roddy [facility] [id number] 09/22/2020 12:00:00 AM [facility] Outpatient Attender: Cole Roddy ROBERTOP 09/18/2020 12:00:00 AM [facility] Unknown [address] [facility] [place] [address] 08/29/2020 12:00:00 AM EDT eCW1 ([facility]) Outpatient Attender: MICHELLE BARLOW [facility] Office 05/2020 12:30:00 PM EST [facility] Outpatient Attender: MICHELLE BARLOW [facility] 05/2020 01:15:00 PM EST [facility] [place] [address] [facility] [place] [address] 04/06/2020 12:00:00 AM EST eCW1 ([facility]) [place] [address] [address] 03/28/2020 12:00:00 AM EST eCW1 ([facility]) Outpatient Referrer: Cole Loweantonio RASCON 03/20/2020 12: 00:00 AM EST Arthrodesis status [facility] Arthrodesis status Outpatient Attender: Cole Pereyra [facility] [id number] 03/20/2020 12:00:00 AM EST [facility] [place] [address] [address] 03/09/2020 12:00:00 AM EST eCW1 ([facility]) Unknown [address] [facility] [place] [address] 02/08/2020 12:00:00 AM EST eCW1 ([facility]) Unknown [address] [facility] [place] [address] 02/03/2020 12:00:00 AM EST eCW1 ([facility]) [place] [address] [address] 01/28/2020 12:00:00 AM EDT eCW1 ([facility]) [place] [address] [address] 01/12/2020 12:00:00 AM EDT eCW1 ([facility]) Outpatient Referrer: Steven Ortega MD 12/20/2019 12:00:00 AM EDT Neuromuscular scoliosis, site unspecified [facility] Neuromuscular scoliosis, site unspecifie d Medications Medication Brand Name Start Date Product Form Dose Route Admi nistrative Instructions Pharmacy Instructions Status Indications Reaction Description Data Source(s) 10 mg 10/20/2020 12:00:00 AM EDT tablet 90 TAKE ONE TABLET BY MOUTH THREE TIMES A DAY TAKE ONE TABLET BY MOUTH THREE TIMES A DAY SOLD: 02/19/2021 [facility] 10 mg 10/20/2020 12:00:00 AM EDT tablet 90 TAKE ONE TABLET BY MOUTH THREE TIMES A DAY TAKE ONE TABLET BY MOUTH THREE TIMES A DAY SOLD: 01/24/2021 [facility] 10 mg 10/20/2020 12:00:00 AM EDT tablet 90 TAKE ONE TABLET BY MOUTH THREE TIMES A DAY TAKE ONE TABLET BY MOUTH THREE TIMES A DAY SOLD: 12/30/2020 [facility] 10 mg 10/20/2020 12:00:00 AM EDT tablet 90 TAKE ONE TABLET BY MOUTH THREE TIMES A DAY TAKE ONE TABLET BY MOUTH THREE TIMES A DAY SOLD: 10/26/2020 [facility] 10 mg 10/20/2020 12:00:00 AM EDT tablet 90 TAKE ONE TABLET BY MOUTH THREE TIMES A DAY TAKE ONE TABLET BY MOUTH THREE TIMES A DAY SOLD: 11/19/2020 [facility] STARCH 10/03/2020 12:00:00 AM EDT powder 1020 USE DIRECTED FOUR TIMES A DAY USE DIRECTED FOUR TIMES A DAY SOLD: 01/09/2021 [facility] 10/03/2020 12:00:00 AM EDT powder 1020 USE DIRECTED FOUR TIMES A DAY USE DIRECTED FOUR TIMES A DAY SOLD: 10/09/2020 [facility] 10/03/2020 12:00:00 AM EDT powder 1020 USE DIRECTED FOUR TIMES A DAY USE DIRECTED FOUR TIMES A DAY SOLD: 11/19/2020 [facility] 10/03/2020 12:00:00 AM EDT powder 1020 USE DIRECTED FOUR TIMES A DAY USE DIRECTED FOUR TIMES A DAY SOLD: 02/08/2021 [facility] 10/03/2020 12:00:00 AM EDT powder 1020 USE DIRECTED FOUR TIMES A DAY USE DIRECTED FOUR TIMES A DAY SOLD: 12/08/2020 [facility] 500 mg 09/30/2020 12:00:00 AM EDT tablet 180 TAKE TWO TABLETS BY MOUTH EVERY DAY TAKE TWO TABLETS BY MOUTH EVERY DAY SOLD: 01/10/2021 [facility] 500 mg 09/30/2020 12:00:00 AM EDT tablet 180 TAKE TWO TABLETS BY MOUTH EVERY DAY TAKE TWO TABLETS BY MOUTH EVERY DAY SOLD: 10/03/2020 [facility] 10 mg 09/01/2020 12:00:00 AM EDT tablet 90 TAKE ONE TABLET BY MOUTH THREE TIMES A DAY TAKE ONE TABLET BY MOUTH THREE TIMES A DAY SOLD: 09/03/2020 [facility] 10 mg 09/01/2020 12:00:00 AM EDT tablet 90 TAKE ONE TABLET BY MOUTH THREE TIMES A DAY TAKE ONE TABLET BY MOUTH THREE TIMES A DAY SOLD: 09/27/2020 [facility] ammonium lactate 120 MG/ML Topical Cream Ammonium Lactate 05/09/2020 12:00:00 AM EST active [facility] 12 % 05/09/2020 12:00:00 AM EST cream 140 APPLY TO FEET ONCE DAILY APPLY TO FEET ONCE DAILY SOLD: 05/12/2020 [facility] Urea 200 MG/ML Topical Cream Urea 20 Intensive Hydrating Cre am 05/05/2020 12:00:00 AM EST active [facility] Urea 400 MG/ML Topical Cream Urea 05/02/2020 12:00:00 AM EST active [facility] STARCH 04/07/2020 12:00:00 AM EST powder 1020 USE DIRECTED FOUR TIMES A DAY USE DIRECTED FOUR TIMES A DAY SOLD: 05/30/2020 [facility] 04/07/2020 12:00:00 AM EST powder 1020 USE DIRECTED FOUR TIMES A DAY USE DIRECTED FOUR TIMES A DAY SOLD: 07/04/2020 [facility] 04/07/2020 12:00:00 AM EST powder 1020 USE DIRECTED FOUR TIMES A DAY USE DIRECTED FOUR TIMES A DAY SOLD: 04/11/2020 [facility] 04/07/2020 12:00:00 AM EST powder 1020 USE DIRECTED FOUR TIMES A DAY USE DIRECTED FOUR TIMES A DAY SOLD: 09/21/2020 [facility] 04/07/2020 12:00:00 AM EST powder 1020 USE DIRECTED FOUR TIMES A DAY USE DIRECTED FOUR TIMES A DAY SOLD: 07/31/2020 [facility] 04/07/2020 12:00:00 AM EST powder 1020 USE DIRECTED FOUR TIMES A DAY USE DIRECTED FOUR TIMES A DAY SOLD: 08/27/2020 [facility] 10 mg 02/28/2020 12:00:00 AM EST tablet 90 TAKE ONE TABLET BY MOUTH THREE TIMES A DAY TAKE ONE TABLET BY MOUTH THREE TIMES A DAY SOLD: 07/04/2020 [facility] 10 mg 02/28/2020 12:00:00 AM EST tablet 90 TAKE ONE TABLET BY MOUTH THREE TIMES A DAY TAKE ONE TABLET BY MOUTH THREE TIMES A DAY SOLD: 02/29/2020 [facility] 10 mg 02/28/2020 12:00:00 AM EST tablet 90 TAKE ONE TABLET BY MOUTH THREE TIMES A DAY TAKE ONE TABLET BY MOUTH THREE TIMES A DAY SOLD: 05/03/2020 [facility] 10 mg 02/28/2020 12:00:00 AM EST tablet 90 TAKE ONE TABLET BY MOUTH THREE TIMES A DAY TAKE ONE TABLET BY MOUTH THREE TIMES A DAY SOLD: 04/05/2020 [facility] 10 mg 02/28/2020 12:00:00 AM EST tablet 90 TAKE ONE TABLET BY MOUTH THREE TIMES A DAY TAKE ONE TABLET BY MOUTH THREE TIMES A DAY SOLD: 05/30/2020 [facility] 10 mg 02/28/2020 12:00:00 AM EST tablet 90 TAKE ONE TABLET BY MOUTH THREE TIMES A DAY TAKE ONE TABLET BY MOUTH THREE TIMES A DAY SOLD: 07/31/2020 [facility] 500 mg 01/20/2020 12:00:00 AM EDT tablet 180 TAKE TWO TABLETS BY MOUTH EVERY DAY TAKE TWO TABLETS BY MOUTH EVERY DAY SOLD: 01/24/2020 [facility] 500 mg 01/20/2020 12:00:00 AM EDT tablet 180 TAKE TWO TABLETS BY MOUTH EVERY DAY TAKE TWO TABLETS BY MOUTH EVERY DAY SOLD: 05/30/2020 [facility] 10/25/2019 12:00:00 AM EDT powder 1020 ONE B Y MOUTH FOUR TIMES A DAY ONE BY MOUTH FOUR TIMES A DAY SOLD: 02/29/2020 [facility] 10/25/2019 12:00:00 AM EDT powder 1020 ONE B Y MOUTH FOUR TIMES A DAY ONE BY MOUTH FOUR TIMES A DAY SOLD: 01/24/2020 [facility] pantoprazole 20 MG Delayed Release Oral Tablet Pantoprazole Sodium 20 MG Oral Tablet Delayed Release (PROTONIX) Pantoprazole Sodium 20 MG Oral Tablet De layed Release (PROTONIX) 05/27/2019 12:00:00 AM EST 20 mg Oral active Take 1 tablet by mouth every morning before breakfast [facility] Insurance Providers Payer name Policy type / Coverage type Policy ID Covered constitution party ID Covered constitution party's relationship to rodriguez Policy Rodriguez Plan Information MEDICAID M [id number] Self [id number] MEDICARE [id number] SP [id number] MEDICARE A [id number] Self [id number] MEDICARE A [id number] Self [id number] MEDICAID [id number] SP [id number] [facility] MEDICARE HMO G [id number] Self [id number] SELF PAY ONLY MEDICAID [id number] SP [id number] Medicare P [id number] S [id number] Medicaid S UNAVAILABLE S UNAVAILA BLE ANSI-Medicaid [id number] ANSI-Medicare Part B [id number] ANSI-Medicaid [id number] ANSI-Medicare Part B [id number] ANSI-Medicaid [id number] ANSI-Medicare Part B [id number] ANSI-Medicaid [id number] ANSI-Medicare Part B [id number] ANSI-Medicaid [id number] ANSI-Medicare Part B [id number] ANSI-Medicaid [id number] ANSI-Medicare Part B [id number] ANSI-Medicare Part B [id number] ANSI-Medicaid [id number] ANSI-Medicaid [id number] ANSI-Medicare Part B [id number] ANSI-Medicaid [id number] ANSI-Medicare Part B [id number] ANSI-Medicaid [id number] ANSI-Medicare Part B [id number] ANSI-Medicare Part B [id number] ANSI-Medicaid [id number] ANSI-Medicaid [id number] ANSI-Medicare Part B [id number] ANSI-Medicare Part B [id number] ANSI-Medicaid [id number] ANSI-Medicaid [id number] ANSI-Medicare Part B [id number] ANSI-Medicare Part B [id number] ANSI-Medicaid [id number] ANSI-Medicare Part B [id number] ANSI-Medicaid [id number] Medicare P UNAVAILABLE S UNAVAILA BLE ANSI-Medicare Part B [id number] ANSI-Medicaid [id number] ANSI-Medicaid [id number] ANSI-Medicare Part B [id number] ANSI-Medicaid [id number] ANSI-Medicare Part B [id number] ANSI-Medicare Part B [id number] ANSI-Medicaid [id number] ANSI-Medicare Part B [id number] ANSI-Medicaid [id number] ANSI-Medicare Part B [id number] ANSI-Medicaid [id number] ANSI-Medicare Part B [id number] ANSI-Medicaid [id number] ANSI-Medicare Part B [id number] ANSI-Medicaid [id number] ANSI-Medicare Part B [id number] ANSI-Medicaid [id number] ANSI-Medicare Part B [id number] ANSI-Medicaid [id number] ANSI-Medicare Part B [id number] ANSI-Medicaid [id number] ANSI-Medicare Part B [id number] ANSI-Medicaid [id number] ANSI-Medicaid [id number] ANSI-Medicare Part B [id number] ANSI-Medicare Part B [id number] ANSI-Medicaid [id number] ANSI-Medicare Part B [id number] ANSI-Medicaid [id number] [facility] MEDICARE PART B C [id number] S [id number] MEDICAID M [id number] S [id number] MEDICARE C [id number] S [id number] MEDICAID W [id number] S [id number] [employer] [id number] SP [id number] [place] [id number] SP [id number] [employer] PROGRESSIVE [id number] SP [id number] MEDICARE [id number] SP [id number] EMEDNY [id number] SP [id number] MEDICARE [id number] SP [id number] Problems, Conditions, and Diagnoses Code Display Name Description Problem Type Effective Dates Data Source(s) Z98.1 Arthrodesis status Arthrodesis status Diagnosis 11:24:28 AM EDT [facility] G80.9 Cerebral palsy Cerebral palsy Problem 05/11/2020 12:00: 00 AM EST [facility] L84 Callosity Callosity Problem 05/11/2020 12:00:00 AM ES T [facility] ([facility] M79.675 Pain in limb Pain in limb Problem 05/11/2020 12:00:00 A M EST [facility] Surgeries/Procedures No Information Results ID Date Data Source [id number] 10/05/2020 01:06:55 PM EDT [facility] XR SPINE-ENTIRE THORACIC AND LUMBAR- 2 O R 3 VIEW [id number] RESULTInterpreted by:Jian Solorio MDEXAM: Entire thoracic and lumbar portions of the spine. HISTORY: That is post thoracolumbar fusion. TECHNIQUE: Upright standing AP and lateral radiographs of the thoracolumbar spine. COMPARISON: Today's examination is compared to an earlier study which is dated 03/20/2020. FINDINGS: There is a 36 degrees curve convex to the right centered on L1. There are 12 rib bearing thoracic vertebral bodies and there are 5 nonrib-bearing lumbar type vertebral bodies. There appears to be solid fusion of the entire lumbar spine. The SI joints remain open and intact. The hip joints are normal. The bowel gas pattern and the heart and lungs appear to be normal. IMPRESSION: 1. There is been complete fusion of the entire lumbar spine.2. There is a 36 degrees curve convex to the right centered on L2. This document has been electronically signed by Jian Solorio MD on 10/05/2020 1:04 PM Name Value Range Interpretation Code Description Data Ayde rce(s) Supporting Document(s) ID Date Data Source [id number] 09/22/2020 12:35:53 PM T [facility] Name Value Range Interpretation Code Description Data Ayde rce(s) Supporting Document(s) Progress Note [facility] MUNNPr9fXaVKYkJp10/BWSmyYFDmy1MgCTqtMKe9QGckGLPjY8FfFYA0eD8pGCQ4UDzYLjQqKhCrTvM1 lbm [file] AgICAgICAgICAgICAgICAgICAgICAgICAgICAgICAgICAgICAgICAgICAgICAgICAgICAgICAgICAgIC AgICAgICAgICAgICAgICAgICAgICAgDQogICAgICAgICAgICAgICAgICAgICAgICAgICAgICAgICAgIC AgICAgICAgICAgICAgICAgICAgICAgICAgICAgICAg ICAgICAgICAgICAgICAgICAgICAgICAgICAgICAgICAgDQogICAgICAgICAgICAgICAgICAgICAgICAg ICAgICAgICAgICAgICAgICAgICAgICAgICAgICAgICAgICAgICAgICAgICAgICAgICAgICAgICAgICAg ICAgICAgICAgICAgICAgDQogICAgICAgICAgICAgIC AgICAgICAgICAgICAgICAgICAgICAgICAgICAgICAgICAgICAgICAgICAgICAgICAgICAgICAgICAgIC AgICAgICAgICAgICAgICAgICAgICAgICAgDQogICAgICAgICAgICAgICAgICAgICAgICAgICAgICAgIC AgICAgICAgICAgICAgICAgICAgICAgICAgICAgICAg ICAgICAgICAgICAgICAgICAgICAgICAgICAgICAgICAgICAgDQogICAgICAgICAgICAgICAgICAgICAg ICAgICAgICAgICAgICAgICAgICAgICAgICAgICAgICAgICAgICAgICAgICAgICAgICAgICAgICAgICAg ICAgICAgICAgICAgICAgICAgDQogICAgICAgICAgIC AgICAgICAgICAgICAgICAgICAgICAgICAgICAgICAgICAgICAgICAgICAgICAgICAgICAgICAgICAgIC AgICAgICAgICAgICAgICAgICAgICAgICAgICAgDQogICAgICAgICAgICAgICAgICAgICAgICAgICAgIC AgICAgICAgICAgICAgICAgICAgICAgICAgICAgICAg ICAgICAgICAgICAgICAgICAgICAgICAgICAgICAgICAgICAgICAgDQogICAgICAgICAgICAgICAgICAg ICAgICAgICAgICAgICAgICAgICAgICAgICAgICAgICAgICAgICAgICAgICAgICAgICAgICAgICAgICAg ICAgICAgICAgICAgICAgICAgICAgDQogICAgICAgIC AgICAgICAgICAgICAgICAgICAgICAgICAgICAgICAgICAgICAgICAgICAgICAgICAgICAgICAgICAgIC WdOMVdDANyRVFdYGMrVOXsYZNsAHJzOHOpLSQgDTLhIMq3Y2fcENFzCXVkWI7eJBq3Lj0+DQoNCmVuZH H4taNyrO8EEW0pe8AtXJwrIFSet4PuUBu7BK6ZHIDo TItkLD0IBXbzki4QKUItLFCliTPUi2afXuQtGVT1YUKdFjwwNC7NZWZmT4naefJoRDKxIEQMVLtiKIFA NB1LTrFmL8LqpF60ZSZUDu3+NFkldhAoLljSFoE6LDYxq2JiLCo7TQ0AQWWuZjgxu7GaSgQcTKLYYKbv KW6FFMY6RCE8EGWnEv2DAWTrE785sgHyQP1RNq0JFy BsTO9zto4MDnQfXAMxUzaCIre4KAjfPU8HhBCwNWkHjq9xanRvshYTg2BxknFzoEMCZUA9eTB1LB3vJK uebCzuEnVyRRMdVd9hJC1kWFRxHCFhNuEvWULJEA8CKWHiBLCwrXJoCMPyHWJLGL6WGOwkXEN5DQQwuc YzwYMpXVstPT5ZHJNlpsZtCcOvTHBDMQj+Kk6QVE5k i1IiZYnrPjExMP1aiw1RBIrIDqEpC9W9zQBmS7S0BHkmTm0LQELmKCBqCpYwPDUVHLbwOG2UEK8xhkN6 TK1WaFNlNMBmLZPruKLcPHg7E11tcLPsCQdsNF0SKHC+Munir+Qn5RYNBfBGMxVNCnVmYuHVQSEyKnW1Yj X1FBu9WqB4EpOJ88wQamagSeKLngDD5RXP8tQLXgRK KAOK2EgFFxtK6vecKwZJUpVISKBoJeA67evIEbGAFmRSB5WLQmDw3GXEXfB6ScarIapEtrezBuVJVpTD WKJK8OCNuszrCuxXJbsLymPB97qYmwTB8ZKi5WVgCfRR3sfh4PzGRiCr8JFAHePM1IAZYwPPRtNUKiQW K2GVBhFbQyQZdhSDXkQJOpUIC6XWWxBJIzVV1NDwAd YVEdPuf5JZPaEKTkEIIkij0YPCZrEKImWQD8QrIxVBCoXOKqFDmxYBQqGRNlZQE9FAPxSHNaEU0ULjDa JQRyTIXnOZCoWSDpLVUviq5CDJXiOJFoZfWxBUBrKFXlCYLwPIfePOOaIIO4SHX9LVRrWLHnFS2IJrTp WOShYXE3FBbfAMHiBWVlav2ANVLhRCVyEvOqYWNjFR PuTDVuOUqlJXPaVQC0RJM7UGEtODOkXZ6NPcAnMXAdLXI5XHLeABVtOORuws2FSZOwIWNlPpn1EOTxAE XkNQZiGIjsHSDsSRY6VCN3IMTfMEHoAO9WLdYaIYUrCYsdHyTpSFFlEGUcgz6CKQRkWNMrWFd8BRRrXU IgTBVaIRwxSMNsGEGwOKg5BQZyIZHgZP1GDjQvOCZj HhMsFYczFZHrTMBunt8BLERiXFHoGET8DJQfGROaJJEkYSojAMGkHPBnQmg1QCXnUOIiDQ6ZCdPxWFFx HwT9RkmrZQUyXXMwwd3ZDTGaZSMoTUiaUFExJFMaFGUjKGawJSLhHBFgKUwwRXJyCTMsOO1UHyKlKBHv FcX1YkQtPXRmEWGpvh7UEVXnRNPnZbPbXkBePNIaIR FsLYwgHJEuRWUrUyGeNLCpCHNaEE4PWeKaVSXsRwkxESCfATNvVHJkxt5PNYMjUNKgRTZ0TIBmSRLyKW QaYWnuBKBhEUT3Izo7XBJtYFQjDG2GAuBzHZNgPjx2ATTrQFYzSOMjpn8HRWKiEARqBPU7YcJvHFEmAJ QjFGuaVNNnZZH9TyG9GDXiUQYiON2TMiEmGMMkLen8 WQEbJFLjWLHrmc4DIURhFSUsQEP6VIIfTEBdOSYtBQkkWXWhDQGuUCJ6WAUjITRcCV9OBbCdGPLjXhP6 WPWkKLLgMSYovv2JLHYzEEZaRYV3GBOxMQRbAPTcHPhbSSMdBVLbZBTzRQJiCVLyQG0DVxUkSShnFOPZ Edj3ZFccI5m4ERFxQK6UJ2Afb3KwOykmYXPBFOqaAS 3pfwVmUOCeFr4BE5kRYxy3AZX6EIArSOPrDZnnYTItJbA2KFRnMJFpZKCoD0GtRQ2xRSQsBtL6GdP9WT YwRBYnDcRkQRN7WZS8RzE2UDD3YYXoPqYeOH1DCq3EEhP2MFQ6jMPlYq9QYkRsHyTUNvAbDY9BWKn= ID Date Data Source [id number] 03/21/2020 12:00:00 AM EST [facility] Name Value Range Interpretation Code Description Data Ayde rce(s) Supporting Document(s) SARS-CoV-2 (COVID-19) RNA [Presence] in Respiratory specimen by ROSIO with probe detection [facility] This lab was ordered by [facility] and reported by [employer] ID Date Data Source [id number] 03/20/2020 04:03:43 PM EST [facility] XR SPINE LUMBAR 4-MORE VIEWS [id number] RESULTInterpreted by:Valerio Mackay MDPaul Oliver Memorial Hospitaljasen spine 4 viewsINDICATION: Lumbar fusionCOMPARISON: Thoracic and lumbar spine radiographs 12/20/2019FINDINGS:Postsurgical changes are again seen of bridging osseous likely fusion throughout the L1-L5 posterior elements.Moderate dextrocurvature centered at L1-2 measuring 31 degrees is unchanged from prior. Severe left T12-L1 through L3-4 and moderate diffuse L4-5 disc space narrowing, unchanged.No definite sagittal spondylolisthesis is seen on neutral, flexion, or extension views, however the extensive posterior osseous fusion limits evaluation.IMPRESSION:No significant change from prior. Moderate dextrocurvature centered at L1-2.This document has been electronically signed by Valerio Mackay MD on 03/20/2020 4:01 PM Name Value Range Interpretation Code Description Data Ayde rce(s) Supporting Document(s) ID Date Data Source [id number] 03/20/2020 03:57:48 PM [facility] Name Value Range Interpretation Code Description Data Ayde rce(s) Supporting Document(s) Progress Note [facility] LZQVSv2nKuVXVtVl25/AYWseOVGrr9CnEIqoSSv7DKuvGIEwE3PgAYR3jX3bTSY5JHiTCfRfOjKrLuAm lbm [file] Luis Alberto/bwf5hISl/p2vQFLrabrBWpHKQ4YKY+0wNDZbBjGVfu8JCD5NvyPlX4o4W943+fe517cxCPHEUb4U [file] [id number]== ID Date Data Source [id number] 01/29/2020 02:39:50 PM EDT [facility] XR SPINE-ENTIRE THORACIC AND LUMBAR- 2 O R 3 VIEW [id number] RESULTInterpreted by:Sulaiman Mccarty MDENTIRE THORACIC AND LUMBAR SPINE SCOLIOSIS 2 OR 3 VIEWSCLINICAL STATEMENT: Scoliosis.TECHNIQUE: Multiple AP and lateral views of the thoracic and lumbar spine were obtained.COMPARISON: 09/16/2019FINDINGS:There is moderate scoliosis, convex towards the right centered at the L1-L2 level, measuring approximately 31 degrees.Normal vertebral body heights and alignment are maintained. There is abnormal coronal imbalance, towards the left.Advanced multilevel degenerative disc disease and facet arthropathy is present throughout the lumbar spine. IMPRESSION: Since 09/16/2019,No significant interval change.Moderate scoliosis with abnormal coronal imbalance, as described above.Advanced multilevel lumbar degenerative disc disease and facet arthropathy.This document has been electronically signed by Sulaiman Mccarty MD on 01/29/2020 2:37 PM Name Value Range Interpretation Code Description Data Ayde rce(s) Supporting Document(s) Procedure Social History Code Duration Value Status Description Data Source(s ) Smoking 10/19/2020 12:00:00 AM EDT Never Smoker completed Never S payal eCW1 ([facility]) Smoking 04/20/2020 12:00:00 AM EST Never Smoker completed Never S moker eCW1 ([facility]) Smoking 04/20/2020 12:00:00 AM EST Never Smoker completed Never S moker eCW1 ([facility]) Alcohol intake 03/20/2020 12:00:00 AM EST Lifetime non-drinker (finding) completed Lifetime non-drinker (finding) [facility] Tobacco use and exposure 03/20/2020 12:00:00 AM EST Never used co mpleted Never used [facility] Smoking 03/20/2020 12:00:00 AM EST Never smoker completed Never s [facility] Smoking 01/28/2020 12:00:00 AM EDT Never Smoker completed Never S moker eCW1 ([facility]) Smoking 01/28/2020 12:00:00 AM EDT Never Smoker completed Never S moker eCW1 ([facility]) Smoking 01/28/2020 12:00:00 AM EDT Never Smoker completed Never S moker eCW1 ([facility]) Smoking 01/28/2020 12:00:00 AM EDT Never Smoker completed Never S moker eCW1 ([facility]) Smoking 01/28/2020 12:00:00 AM EDT Never Smoker completed Never S moker eCW1 ([facility]) Smoking 01/28/2020 12:00:00 AM EDT Never Smoker completed Never S moker eCW1 ([facility]) Smoking 01/28/2020 12:00:00 AM EDT Never Smoker completed Never S moker eCW1 ([facility]) Vital Signs ID Date Data Source UNK Name Value Range Interpretation Code Description Data Source(s) Body weight 119.0 [lb_av] 119.0 [lb_av] eCW1 ([facility]) Body height 69 [in_i] 69 [in_i] eCW1 ([facility]) Body mass index (BMI) [Ratio] 17.57 kg/m2 17.57 kg/m2 eCW1 ([facility]) Heart rate 105 /min 105 /min eCW1 ([facility]) Respiratory rate 18 /min 18 /min eCW1 ([facility]) Body temperature 99.2 [degF] 99.2 [degF] eCW1 ( [facility]) Systolic blood pressure 118 mm[Hg] 118 mm[Hg] e CW1 ([facility]) Diastolic blood pressure 74 mm[Hg] 74 mm[Hg] eCW1 ([facility]) Diastolic blood pressure 78 mm[Hg] 78 mm[Hg] [facility] ([facility] Systolic blood pressure 118 mm[Hg] 118 mm[Hg] M [facility]ENT ([facility] Body height 70 [in_i] 70 [in_i] [facility] ([facility] 5'10" Body weight 114.00 [lb_av] 114.00 [lb_av] MEDEN T ([facility] Heart rate 73 /min 73 /min [facility] ([facility] Body mass index (BMI) [Ratio] 16.4 kg/m2 16.4 k g/m2 [facility] ([facility] Body weight 115 [lb_av] 115 [lb_av] eCW1 ([facility]) Body height 69 [in_i] 69 [in_i] eCW1 ([facility]) Body mass index (BMI) [Ratio] 16.98 kg/m2 16.98 kg/m2 eCW1 ([facility]) Heart rate 68 /min 68 /min eCW1 ([facility]) Respiratory rate 18 /min 18 /min eCW1 ([facility]) Body temperature 99.6 [degF] 99.6 [degF] eCW1 ( [facility]) Systolic blood pressure 110 mm[Hg] 110 mm[Hg] e CW1 ([facility]) Diastolic blood pressure 80 mm[Hg] 80 mm[Hg] eCW1 ([facility]) Patient Treatment Plan of Care Planned Activity Planned Date Details Description Data Source (s) pantoprazole 20 MG Delayed Release Oral Tablet 05/27/2019 12:00:00 AM [facility]
--- NOTE | 2021-03-03 20:46 | REPVR ---
PROCEDURE INFORMATION: Exam: CT Head Without Contrast Exam date and time: 03/03/2021 7:54 PM Age: 50 years old Clinical indication: Injury or trauma; Fall; Blunt trauma (contusions or hematomas); Consciousness not specified TECHNIQUE: Imaging protocol: Computed tomography of the head without contrast. Radiation optimization: All CT scans at this facility use at least one of these dose optimization techniques: automated exposure control; mA and/or kV adjustment per patient size (includes targeted exams where dose is matched to clinical indication); or iterative reconstruction. COMPARISON: CT Head without contrast 11/05/2018 11:10 AM FINDINGS: Brain: Normal. No hemorrhage. Unremarkable white matter. No mass effect. Cerebral ventricles: No ventriculomegaly. Paranasal sinuses: Visualized sinuses are unremarkable. No fluid levels. Mastoid air cells: Visualized mastoid air cells are well aerated. Bones/joints: Unremarkable. No acute fracture. Soft tissues: Unremarkable. IMPRESSION: No acute intracranial abnormality. Electronically signed by: Blade Lind On 03/03/2021 20:46:02 PM
[2021-03-03] MEDS ORDERED: NEOSPORIN OINT 0.9 GM PKT TOP ONE (20:50)
[2021-03-03 21:11] VITALS: BP 131/82
== END 2021-03-03 21:12 | disposition home or self-care (01) ==
LOC: M ED 17:14
DX: S00.03XA Contusion of scalp, initial encounter (principal); S80.812A Abrasion, left lower leg, initial encounter; W05.0XXA Fall from non-moving wheelchair, initial encounter; Y92.009 Unspecified place in unspecified non-institutional (private) residence as the place of occurrence of the external cause; Y93.9 Activity, unspecified; Y99.9 Unspecified external cause status; G80.9 Cerebral palsy, unspecified; Z88.1 Allergy status to other antibiotic agents; Z79.899 Other long term (current) drug therapy

== ENCOUNTER → 2021-03-20 | Outpatient (CLI) | payer MEDICARE, MEDICAID ==
[2021-03-20 13:11] LABS: HEMATOCRIT 47.3 % (42.0-52.0); HEMOGLOBIN 15.2 g/dl (13.5-17.5); MEAN CORPUSCULAR HEMOGLOBIN 26.9 pg (27.0-33.0); MEAN CORPUSCULAR HGB CONC 32.1 g/dl (32.0-36.5); MEAN CORPUSCULAR VOLUME 83.7 fl (80.0-96.0); PLATELET COUNT, AUTOMATED 197 10^3/uL (150-450); RED BLOOD COUNT 5.65 10^6/uL (4.30-6.10); WHITE BLOOD COUNT 4.1 10^3/uL (4.0-10.0)
[2021-03-20 13:48] LABS: ALBUMIN 4.2 GM/DL (3.2-5.2); ALT/SGPT 14 U/L (12-78); BILIRUBIN,TOTAL 0.5 MG/DL (0.2-1.0); BLOOD UREA NITROGEN 10 MG/DL (7-18); CALCIUM LEVEL 9.4 MG/DL (8.5-10.1); CARBON DIOXIDE LEVEL 29 MEQ/L (21-32); CHLORIDE LEVEL 107 MEQ/L (98-107); CHOLESTEROL LEVEL 190 MG/DL (<200); CHOLESTEROL RISK RATIO 3.877 (<5); FERRITIN 70 NG/ML (26-388); GLOMERULAR FILTRATION RATE > 60.0 (>56); GLUCOSE, FASTING 91 MG/DL (70-100); HDL CHOLESTEROL 49 MG/DL (>40); IRON (FE) 75 UG/DL (65-175); LDL CHOLESTEROL 122 MG/DL (<100); NON-HDL-C 141 MG/DL; POTASSIUM SERUM 3.8 MEQ/L (3.5-5.1); SODIUM LEVEL 142 MEQ/L (136-145); TOTAL PROTEIN 7.4 GM/DL (6.4-8.2); TRIGLYCERIDES LEVEL 97 MG/DL (<150)
== END ==
LOC: M PLALAB 10:10
PROVIDERS: ATTEND Family Medicine
DX: E78.5 Hyperlipidemia, unspecified (principal); Z12.5 Encounter for screening for malignant neoplasm of prostate; D50.9 Iron deficiency anemia, unspecified
CPT/HCPCS: 36415; 80053; 80061; 82728; 83540; 85027; G0103

== ENCOUNTER → 2021-03-26 | Outpatient (CLI) | payer MEDICARE, MEDICAID ==
[~2021-03-26] MED LIST changes: -DAPT500I IV; +DAPT500V8 IV
== END ==
LOC: M WHC 10:07
PROVIDERS: ATTEND Family Medicine
DX: Z13.820 Encounter for screening for osteoporosis (principal); M81.0 Age-related osteoporosis without current pathological fracture

== ENCOUNTER → 2022-06-11 | Outpatient (CLI) | payer MEDICARE, MEDICAID ==
[2022-06-11 12:01] LABS: HEMATOCRIT 43.6 % (42.0-52.0); HEMOGLOBIN 13.8 g/dl (13.5-17.5); MEAN CORPUSCULAR HEMOGLOBIN 26.5 pg (27.0-33.0); MEAN CORPUSCULAR HGB CONC 31.7 g/dl (32.0-36.5); MEAN CORPUSCULAR VOLUME 83.7 fl (80.0-96.0); PLATELET COUNT, AUTOMATED 312 10^3/uL (150-450); RED BLOOD COUNT 5.21 10^6/uL (4.30-6.10); WHITE BLOOD COUNT 4.6 10^3/uL (4.0-10.0)
[2022-06-11 12:38] LABS: ALBUMIN 3.7 G/DL (3.2-5.2); ALKALINE PHOSPHATASE 99 U/L (46-116); ALT/SGPT < 9 U/L (7.0-40); AST/SGOT 16 U/L (<34); BILIRUBIN,TOTAL 0.3 MG/DL (0.3-1.2); BLOOD UREA NITROGEN 7 MG/DL (9-23); CALCIUM LEVEL 9.2 MG/DL (8.5-10.1); CARBON DIOXIDE LEVEL 32 MMOL/L (20-31); CHLORIDE LEVEL 104 MMOL/L (98-107); CHOLESTEROL LEVEL 165 MG/DL (<200); CHOLESTEROL RISK RATIO 4.26 (<5); CREATININE FOR GFR 1.08 MG/DL (0.70-1.30); GLOMERULAR FILTRATION RATE > 60.0 (>56); GLUCOSE, FASTING 93 MG/DL (60-100); HDL CHOLESTEROL 38.7 MG/DL (>40); LDL CHOLESTEROL 112.9 MG/DL (<100); NON-HDL-C 126.3 MG/DL; POTASSIUM SERUM 4.3 MMOL/L (3.5-5.1); SODIUM LEVEL 142 MMOL/L (136-145); TOTAL PROTEIN 6.8 G/DL (5.7-8.2); TRIGLYCERIDES LEVEL 67 MG/DL (<150)
[2022-06-11 14:18] LABS: HEMOGLOBIN A1c 5.4 % (4.0-6.0)
== END ==
LOC: M WUC 09:23
PROVIDERS: ATTEND Family Medicine
DX: Z12.5 Encounter for screening for malignant neoplasm of prostate (principal); Z13.1 Encounter for screening for diabetes mellitus; D50.9 Iron deficiency anemia, unspecified; E78.00 Pure hypercholesterolemia, unspecified
CPT/HCPCS: 36415; 80053; 80061; 83036; 85027; G0103

== ENCOUNTER 2022-11-13 12:25 | Outpatient (RCR) | payer MEDICARE, MEDICAID | END 2022-11-28 | LOC: M ST 12:25 | PROVIDERS: ATTEND Family Medicine | DX: K11.7 Disturbances of salivary secretion (principal) ==

== ENCOUNTER → 2023-12-31 | Outpatient (REF) | payer MEDICARE, MEDICAID ==
[~2023-12-31] MED LIST changes: -MULT200T7 PO; +MULT200T9 PO; +PIPE3.3729 IV; -ZOSY1SOL5 IV
== END ==
LOC: M SFHCPLAZ 11:40
PROVIDERS: ATTEND Physician Assistant Medical
DX: N39.0 Urinary tract infection, site not specified (principal)

== ENCOUNTER → 2024-01-01 | Outpatient (REF) | payer MEDICARE, MEDICAID | LOC: M SFHCPLAZ 13:19 | PROVIDERS: ATTEND Physician Assistant Medical | DX: R39.11 Hesitancy of micturition (principal) ==

== ENCOUNTER → 2024-04-26 | Outpatient (CLI) | payer MEDICARE, MEDICAID ==
[2024-04-26 11:10] LABS: HEMATOCRIT 47.4 % (42.0-52.0); HEMOGLOBIN 15.2 g/dl (13.5-17.5); MEAN CORPUSCULAR HGB CONC 32.1 g/dl (32.0-36.5); PLATELET COUNT, AUTOMATED 226 10^3/uL (150-450); RED BLOOD COUNT 5.64 10^6/uL (4.30-6.10); WHITE BLOOD COUNT 4.1 10^3/uL (4.0-10.0)
[2024-04-26 11:51] LABS: IRON (FE) 87 UG/DL (65-175)
[2024-04-26 11:52] LABS: ALBUMIN 4.5 G/DL (3.2-5.2); ALKALINE PHOSPHATASE 112 U/L (40-129); ALT/SGPT 9 U/L (7.0-40); AST/SGOT 11 U/L (<34); BILIRUBIN,TOTAL 0.6 MG/DL (0.3-1.2); BLOOD UREA NITROGEN 11 MG/DL (9-23); CALCIUM LEVEL 9.6 MG/DL (8.5-10.1); CARBON DIOXIDE LEVEL 31 MMOL/L (20-31); CHLORIDE LEVEL 102 MMOL/L (98-107); CHOLESTEROL LEVEL 219 MG/DL (<200); CREATININE FOR GFR 1.06 MG/DL (0.70-1.30); GLOMERULAR FILTRATION RATE > 60.0 (>56); GLUCOSE, FASTING 98 MG/DL (60-100); HDL CHOLESTEROL 50.9 MG/DL (>40); LDL CHOLESTEROL 147.3 MG/DL (<100); NON-HDL-C 168.1 MG/DL; POTASSIUM SERUM 4.2 MMOL/L (3.5-5.1); PSA SCREENING 1.59 NG/ML (< 4.00); SODIUM LEVEL 144 MMOL/L (136-145); TOTAL PROTEIN 7.9 G/DL (5.7-8.2); TRIGLYCERIDES LEVEL 104 MG/DL (<150)
[2024-04-26 11:55] LABS: FERRITIN 244.5 NG/ML (10.5-307.3); THYROID STIMULATING HORMONE 1.239 uIU/ML (0.55-4.78)
== END ==
LOC: M PLALAB 08:47
PROVIDERS: ATTEND Family Medicine
DX: Z12.5 Encounter for screening for malignant neoplasm of prostate (principal); D50.9 Iron deficiency anemia, unspecified; E07.9 Disorder of thyroid, unspecified; E78.00 Pure hypercholesterolemia, unspecified
CPT/HCPCS: 36415; 80053; 80061; 82728; 83540; 84443; 85027; G0103

== ENCOUNTER 2024-08-08 11:40 | Emergency (ER) | payer MEDICARE, MEDICAID ==
[~2024-08-08] VITALS: Ht 177.8 cm; Wt 55.9 kg
[2024-08-08 12:36] LABS: BASO % 0.7 % (0.0-1.0); EOS # 0.1 10^3/uL (0.0-0.5); EOS % 1.1 % (0.0-3.0); HEMATOCRIT 46.2 % (42.0-52.0); HEMOGLOBIN 15.2 g/dl (13.5-17.5); LYMPH # 1.2 10^3/uL (1.5-5.0); LYMPH % 21.9 % (24.0-44.0); MEAN CORPUSCULAR HEMOGLOBIN 27.5 pg (27.0-33.0); MEAN CORPUSCULAR HGB CONC 32.9 g/dl (32.0-36.5); MEAN CORPUSCULAR VOLUME 83.7 fl (80.0-96.0); MONO # 0.4 10^3/uL (0.0-0.8); MONO % 7.1 % (2.0-8.0); NEUTROPHILS # 3.9 10^3/uL (1.5-8.5); PLATELET COUNT, AUTOMATED 197 10^3/uL (150-450); RED BLOOD COUNT 5.52 10^6/uL (4.30-6.10); WHITE BLOOD COUNT 5.6 10^3/uL (4.0-10.0)
[2024-08-08 12:56] LABS: LIPASE 40 U/L (12-53)
[2024-08-08 12:58] LABS: ALBUMIN 4.4 G/DL (3.2-5.2); ALKALINE PHOSPHATASE 122 U/L (40-129); ALT/SGPT 10 U/L (7.0-40); AST/SGOT 16 U/L (<34); BILIRUBIN,DIRECT 0.1 MG/DL (<0.4); BILIRUBIN,TOTAL 0.5 MG/DL (0.3-1.2); BLOOD UREA NITROGEN 6 MG/DL (9-23); CALCIUM LEVEL 9.7 MG/DL (8.5-10.1); CARBON DIOXIDE LEVEL 30 MMOL/L (20-31); CHLORIDE LEVEL 102 MMOL/L (98-107); CREATININE FOR GFR 0.88 MG/DL (0.70-1.30); GLOMERULAR FILTRATION RATE > 90.0 (>56); GLUCOSE, FASTING 95 MG/DL (60-100); POTASSIUM SERUM 4.1 MMOL/L (3.5-5.1); SODIUM LEVEL 142 MMOL/L (136-145); TOTAL PROTEIN 7.8 G/DL (5.7-8.2)
[2024-08-08] MEDS: LIDOCAINE 2% 5ML JELLY UROJET TOP ONE (14:25)
[2024-08-08 15:03] LABS: KETONE, URINE AUTO RFX TRACE mg/dL (NEGATIVE); LEUKOCYTE ESTERASE UR AUTO RFX NEGATIVE (NEGATIVE); MUCUS, URINE RFX SMALL (NEGATIVE); NITRITE, URINE AUTO RFX NEGATIVE (NEGATIVE); RBC, URINE AUTO RFX 10 /HPF (0-3); SQUAM EPITHELIAL CELL UR AURFX 0 /HPF (0-6); WBC, URINE AUTO RFX 1 /HPF (0-3)
[2024-08-08 15:41] VITALS: BP 140/81; TEMP 98; O2SAT 100
== END 2024-08-08 15:58 | disposition home or self-care (01) ==
LOC: M ED 11:40
DX: R10.9 Unspecified abdominal pain (principal); G80.9 Cerebral palsy, unspecified; Z88.1 Allergy status to other antibiotic agents; Z79.2 Long term (current) use of antibiotics; Z79.810 Long term (current) use of selective estrogen receptor modulators (SERMs)

== ENCOUNTER → 2024-08-12 | Outpatient (REF) | payer MEDICARE, MEDICAID ==
[2024-08-12 17:20] LABS: AMORPHOUS SEDIMENT SMALL (NEGATIVE); APPEARANCE, URINE HAZY (CLEAR); BACTERIA, URINE AUTO NEGATIVE (NEGATIVE); BILIRUBIN, URINE AUTO NEGATIVE (NEGATIVE); BLOOD, URINE BLOOD NEGATIVE (NEGATIVE); COLOR, URINE YELLOW (YELLOW); GLUCOSE, URINE (UA) AUTO NEGATIVE (NEGATIVE); KETONE, URINE AUTO TRACE mg/dL (NEGATIVE); LEUKOCYTE ESTERASE, URINE AUTO NEGATIVE (NEGATIVE); MUCUS, URINE SMALL (NEGATIVE); NITRITE, URINE AUTO NEGATIVE (NEGATIVE); PROTEIN, URINE AUTO 1+ mg/dL (NEGATIVE); RBC, URINE AUTO 0 /HPF (0-3); SPECIFIC GRAVITY URINE AUTO 1.023 (1.002-1.035); SQUAMOUS EPITHELIAL CELL UR AU 1 /HPF (0-6); UROBILINOGEN, URINE AUTO 0.2 mg/dL (0.0-2.0); WBC, URINE AUTO 0 /HPF (0-3)
== END ==
LOC: M SFHCPLAZ 16:46
PROVIDERS: ATTEND Nurse Practitioner Family
DX: R82.90 Unspecified abnormal findings in urine (principal)

== ENCOUNTER → 2025-01-03 | Outpatient (CLI) | payer MEDICARE, MEDICAID | LOC: M RAD 14:05 | PROVIDERS: ATTEND Family Medicine | DX: N43.3 Hydrocele, unspecified (principal) ==

== ENCOUNTER → 2025-03-04 | Outpatient (CLI) | payer MEDICARE, MEDICAID ==
[~2025-03-04] MED LIST changes: -BACTDSTA PO; +SULF-8 PO
[2025-03-04 15:42] LABS: PLATELET COUNT, AUTOMATED 217 10^3/uL (150-450)
== END ==
LOC: M PLALAB 12:29
DX: N45.1 Epididymitis (principal)